=== PATIENT | female | born 1985 | race Caucasian/White ===

== ENCOUNTER 2023-04-19 16:30 | Outpatient (OUT) | payer OTHER, SELFPAY ==
--- NOTE | 2023-04-19 16:40 | US_ITS ---
The [address] [address] Patient Name: CAROLINE EASTON MRN: [id number] date: 1985 Sex: F Assigned Patient Location: US Current Patient Location: Accession/Order Number: [id number] Exam Date: 04/19/2023 16:41 Report Date: 04/20/2023 07:41 At the request of: TRINIDAD DIGGS Procedure: US pelvis transvaginal EXAM: US pelvis transvaginal HISTORY: R10.2 PELVIC PAIN IN FEMALE COMPARISON: None. TECHNIQUE: Pelvic sonography was performed utilizing grayscale and color Doppler technique. FINDINGS: Hysterectomy.. Right ovary measures 2.6 x 2.4 x 2.5 cm. Normal right ovarian parenchyma. Left ovary measures 2.3 x 1.1 x 1.5 cm. Normal left ovarian parenchyma. No significant free fluid within the pelvis. US/US pelvis transvaginal IMPRESSION: 1. Hysterectomy. 2. Normal ovaries Electronically authenticated by: SARA DAVEY Date: 04/20/2023 07:41
== END 2023-04-19 16:31 | disposition home or self-care (01) ==
LOC: LAB 16:34 → US 16:39
PROVIDERS: PCP Obstetrics & Gynecology; Visit Provider Obstetrics & Gynecology
DX: R10.2 Pelvic and perineal pain (principal); Z90.710 Acquired absence of both cervix and uterus
CPT/HCPCS: 76830

== ENCOUNTER 2023-09-15 21:43 | Outpatient (REF) | payer OTHER, SELFPAY ==
--- OUTSIDE RECORDS SUMMARY | 2023-09-16 10:16 | XMS_ITS | CCD ---
Author Name Unknown Address [address] [place] [address] Organization [facility] Care Team Providers Care Inspector [employer] Name Role Phone DEISI PRAJAPATI Unavailable Unavailable NO PRIMARY CARE, MD Unavailable Unavailable KACEY, NYLA T Unavailable Unavailable KACEY, NYLA T Unavailable Unavailable KACEY, NYLA T Unavailable Unavailable NO PRIMARY CARE, MD Unavailable Unavailable KEVIN GRIFFIN Unavailable Unavailable KACEY, NYLA T Unavailable Unavailable NO PRIMARY CARE, MD Unavailable Unavailable EZEQUIEL GREY Unavailable Unavailable DEISI PRAJAPATI Unavailable Unavailable NO PRIMARY CARE, Unavailable Unavailable KACEY, NYLA T Unavailable Unavailable BARBARALILI RODRIGESISTIN J Unavailable Unavailable HORN, ROXIE L Unavailable Unavailable GILBERT, LILA Unavailable Unavailable BARBARA, DEISI J Unavailable Unavailable HORN, ROXIE L Unavailable Unavailable DR JUAN CARLOS DIGGS Attending Unavailable CATERINA, DR ABDI Consulting Unavailable DR JUAN CARLOS DIGGS Admitting Unavailable Gudimella, Za Attending Unavailable Timmis, Becky H Attending Unavailable Timmis, Becky H Admitting Unavailable Timmis, Becky H Referring Unavailable Josue Carrasquillo Attending Unavailable Timmis, Becky H Admitting Unavailable Timmis, Becky H Referring Unavailable Timmis, Becky H Attending Unavailable VICKI LEACH Attending Unavailable Allergies Allergy Classification Reported Allergen(s) Allergy Type Date of Onset Reaction(s) Facility (1 source) Amoxicillin; Translations: [AMOXICILLIN] Drug Allergy [facility] Repository (1 source) Sulfamethoxazole / Trimethoprim; Translations: [SULFAMETHOXAZOLE-TR IMETHOPRIM] Drug Allergy [facility] Repository (2 sources) Sulfamethoxazole / Trimethoprim; Translations: [Bactrim] Drug Allergy [facility] Repository (1 source) Sulfamethoxazole; Translations: [sulfamethoxazole] Drug Allergy [facility] Repository Problems Problem Classification Problem Date Documented Date Episodic/Chronic Immunizations and screening for infectious disease (1 source) Encounter for screening for human papillomavirus (HPV); Translations: [ENC SCREENING HUMAN PAPILLOMAVIRUS] Onset: 09-12-2022 Episodic Other screening for suspected conditions (not mental disorders or infectious disease) (4 sources) Encounter for screening for malignant neoplasm of cervix; Translations: [ENC SCREENING MALIG NEOPLASM CERV] Onset: 09-07-2022 Episodic Results Test Name Value Interpretation Reference Range Facility Family Medicine Office/Clini c Noteon 07-02-2023 Family Medicine Office/Clinic Note Chief Complaint cough HPI Staff complaints of multiple sx Onset:2 weeks Characteristics: dry cough, congestion, sore throat, hurts from mid chest to her throat, OTC tried:tussin, DayQuil, NyQuil, Sudafed Health Maintenance: Pap:12/04/19 Last Labs:01/04/23 History of Present Illness TIFFANY WINTERS is a 38 Years White Female presenting to clinic today with cough, sore throat, congestion x2 weeks no fever +chills, occasional difficulty breathing, occasional chest tightness, sore throat, dry cough went through whole family, , daughter, son Review of Systems PHQ Score Initial Depression Screen Score: 0 Negative except as above Physical Exam Vitals & Measurements HR: 88(Peripheral) BP: 110/62 SpO2: 97% HT: 68 in HT: 172 cm WT: 75.3 kg WT: 165.66 lb BMI: 25.45 Gen: No acute distress, sitting comfortably in chair HEENT: Posterior pharynx clear, moist mucous membranes, TMs and external ear canals normal, no sinus tenderness, no tonsillar enlargement Cardio: RRR, no murmur/rubs/gallops Resp: CTAB, no wheezing/rales/rhonchi Assessment/Plan 1. Bronchitis (J40: Bronchitis, not specified as acute or chronic) azithromycin x5 days prescribed cxr ordered in case symptoms do not improve after antibiotics will trial omeprazole if symptoms persist Ordered: azithromycin, = 1 packet(s), Oral, As Directed, as directed on package labeling, X 5 day(s), # 6 tab(s), Refills(s) 0, Pharmacy: [id number], 172, cm, 07/02/23 7:24:00 EDT, Height/Length Dosing, 75.3, kg, 07/02/23 7:24:00 EDT, Weight Dosing XR Chest 2 Views 2. BMI 25.0-25.9,adult (Z68.25: Body mass index [BMI] 25.0-25.9, adult) The standard range for ages 18 and older is >=18.5 and < 25 kg/m2. Your BMI today was above this range, this falls in the overweight to obese category and there are medical benefits to weight loss. We can offer counselling, referral, and/or medical support in addressing this problem. Your BMI and weight management will be followed at subsequent visits. 3. Nonsmoker (Z78.9: Other specified health status) stable 4. Overweight (E66.3: Overweight) increase whole foods, decrease processed foods exercise at least 2.5 hours weekly Follow-up With When Contact Information Za Dooley MD, FAM, MED Only if needed [address] [place] [phone] Additional Instructions: Problem List/Past Medical History Ongoing Bunion of great toe Frequent episodes of sinusitis Hx of hysterectomy Hypoglycemia Overweight Pelvic congestion syndrome Pelvic congestion syndrome Historical Procedure/Surgical History Intranasal antrostomy (08/27/2022), Hysterectomy (08/30/2020), Diagnostic laparoscopy (04/29/2020), Suciton D&C (11/25/2013), Accessory sinus excision, Bunionectomy. Medications azithromycin 250 mg Tab 5-day Dose Pack (Z-Aditya), 1 packet(s), Oral, As Directed cetirizine 10 mg Tab, 10 mg= 1 tab(s), Oral, Daily, PRN Fish Oil 500 mg oral capsule, 500 mg= 1 cap(s), Oral, Daily Flonase 0.05 mg/inh nasal spray, 2 spray(s), Nasal, Daily Multi Vitamins oral tablet, 1 tab(s), Oral, Daily Premarin, See Instructions Allergies Bactrim (Rash) sulfamethoxazole (unknown) Social History Alcohol - Low Risk, 04/29/2020 1-2 times per month, 01/04/2023 Current, Beer, Wine, 1-2 times per week, 05/13/2020 Employment/School - Low Risk, 04/29/2016 Employed, Operates hazardous equipment: No., 01/28/2015 Exercise - Regular exercise, 04/29/2016 Exercise frequency: 3-4 times/week. Exercise type: Walking., 01/28/2015 Home/Environment - Low Risk, 04/29/2016 Lives with Spouse. Family/Friends available for support: Yes., 01/28/2015 Nutrition/Health - Low Risk, 04/29/2016 Regular, 01/28/2015 Sexual - Low Risk, 04/29/2016 Sexually active: Yes., 01/28/2015 Substance Abuse - Denies Substance Abuse, 01/25/2020 DENIES, Household substance abuse concerns: No., 05/13/2020 Tobacco - Denies Tobacco Use, 01/25/2020 Never (less than 100 in lifetime) Tobacco Use:. Never Smokeless Tobacco Use:. Household tobacco concerns: No., 07/02/2023 Family History COPD: Negative: Father. Diabetes mellitus type 2: Mother and Father. Diverticulitis of colon: Father. Hypertension: Mother and Father. Primary malignant neoplasm of colon: Aunt. Immunizations Vaccine Date Status Comments influenza virus vaccine, inactivated - Not Given Postpone due to refusal SARS-CoV-2 (COVID-19) mRNA BNT-162b2 vax 07/30/2021 Given SARS-CoV-2 (COVID-19) mRNA BNT-162b2 vax 07/30/2021 Given I Did not give this vaccine only entered for charges SARS-CoV-2 mRNA (tozinameran 5y-11y) vac 06/06/2021 Recorded influenza virus vaccine, inactivated 08/07/2019 Recorded diphtheria/pertussis, acel/tetanus adult 10/13/2018 Given Other (see comment) Normal [facility] Comment on above: Result Comment: Elec tronically Signed By: Za Dooley MD\.br\Date and Time Signed: 07/02/23 08:08 EDT Coding Summary.on 01-06-2023 Coding Summary. [id number] Ww+ PGhlYWQ+JZ2CXFOdF53bjAB rxF9qD1PFIDoLTjnpGTEIKO bZQqLhobLrGY8pqQQwKVXi IC8+QS4uLUUhZiqriMUce0S 1wQP7D37buy1tKMsozVS8NJ KoAgKdqvqck9fjxFy4IYxpP mluOyBt PTJifM36ODJ0oR79Zs87tPS nzRQth6ptqVp8WmCqWEZgJO E6zIlhXKbzk6YuRVEeX15mi QHig7F8 RPPhqOxicMRaSzSvuKF0gR9 iLMrhbmadl7vklgmiGlw4cj 26uOEya0Q2xLI6E3SfkjO3M GJvbGQg LoxsgWBPcY3vlujuz4mfpge pRmVsTKGjRYu1IVf1PQPwiF scXqWrHV82GML0KMIyngVtH 2FsLWFs uFlyNhG6f5M5Uq9VE7TZPwm mV6XLWDRMOYsqwSA+PC90cj 02Y0DjMdenRsx6XANiDMT6a CM4hC6h RGYgPCvoc2Q8oKN9O1ZxncS qwz6ke5bpCNGsJKxhP38adI Vzr1U2FKWnvFR8WKZilIzlN iBzaG93 Oyc+TEQacBxph7VsVmveu0d ms5abmTe6TqvgXDJpkrGspW eePTG9b3AaSh6dQHKltKG3u CG0rA6n RpWuBvU7FFmlV411XzPvpME wBhmvO30uV2TztJP+PHRyPj h8IAArfVokKO5pT4NtEEOny mctbGVm hVdjPP0yKUEibgnjOZTieY9 sSCNbA8q4AqJfPiV6MXkiE7 XbNXJffubkRn34yJ3yBaFtL xT9EKhm B0CeawK0PGUaiDTgTOiwQKM 2X26fb0A1KKKdUKMcBLV0mV T1yF6ozQbfcqdohRBmgNlct mVydGlj WMkrYTfxA276JHTreOktSeU vZGluZyBEYXRlOiAgMDQvMT IvMjAyMzwvdGQ+NIIcFCK5r WxlPSAn hCFmGMnoBl8jpDfndDftJT4 uCPUadwiwILTebK4zQXBtvI LkgOyfZU0dDONizekli286Z iAxMHB0 NDAdvCGtI8JmrM0rNdGfKOC rJESjA5JorBKhTIdpP339HM idGcM7NVEcdlZmJ2XkMAKpj WduOiB0 a5P5Rg8Wk1HwrsuxB3YtyMR vJhTfRtbwVGf8Q0WoKpnkkS I+JS35TNYuSP01XTp3JZA4r WxlPSdi LJQgG8MhcJ4eCeXkVRVfDRM kOyc+PHRhYmxlIHdpZHRoPS acDOPpJkRraIvwXN7fVf8iP GVyLWNv fIblwAQqMvBwz4tmMZTqWEr yMN3ejZmeB9RskCZ2FMSdi3 r2Sm00J63vH0ZetRV+PGNvb NR4pZI7 eB7xArXtWjW2FErcY996BsF glJEdByfpa3ydz5hbzMz9Xe G3JQNltmFidOukKFM0j4YwR y47X12f IHdpZHRoPSIxNSUiIHZhbGl ned7snU8eCg6+OCQssVU2uM A7mP6iHoAjNaO8HKewV013L nRvcCIv Cqrfy2thq7fspUj9SjHjTME ccaTrnKjhHWM5e9ZwAm65K1 AnwMwyf0MgYsu0xq58pDVvv 2L3gOM0 R7KdEYCfegvyzMTtkGpiSY7 yWYNsmbjsBARrxL8vAHOfD0 p4YlZzFxL9JXwuX4QgzpV4E GJvbGQg SHLplRMPaU5lvhpkj1vkncn uGzSdNUFcMJt0BRv5XVIfkY xpTvYpWPZ8DyS5PGE9rMFyz W9wfHhe nutcgY6gEgl+LUL3aHMqsHZ IAO4nRnlmtTK+SDZsLAP4uL eqXIpjKXBrrB1bMONsV3x1Z iAwLjA1 PPfqW9JleoV7NCEsmIKmLET oqGJMgH4tppbbu6pczhqxWp KdEKOyPLv7RQt4UFAixAdeW iBsZWZ0 UpG2OTP9bOVaoW8ezEvybbb ktT7oQhu+YtufqPlnSCW6YY f3A2WlSns5XHGlbBldKE9cr GFkZGlu Jh6xcClryEcvEA5qAOYvgcl ht967MwHbq6jlYMPdhPKoTH nyUOT4R06mc1S5PJJbAJInR HZ9zZP3 dG7odKthojatvECaqPmvgnB bnLfnCVgdMVikR922TWHzdS ceGmVwFBe1K5GrWwa1CPXev QjpHD4e hOTbLCpxLb0saBiseZnwOE0 eQWOumulgv889NtSud3hfJQ DcaTOpUOupHST8E65tw9Q5O CMwMDAw SSR7eOC8wA2avElzecotaBK mdDsgdmVydGljYWwtYWxpZ2 10DGPdyIktOgLzzHc5Y5BmN hz9ZZAn hPbaZR8jzGErKZekQy6kgQi kiBtrPX5bUCVwvarkj494Ey Fdz5kuSIKpnCIiBBjlHCP6C 62ws1S0 SWMjVPBrCWR1eAR2oD1bhMn nbjogbGVmdDsgdmVydGljYW umRAzzZ253MHOlvNszRuItz GllbnQg NLryXKx4H7IjMduqoTK+PC9 2FXKvSL35eLOeySVfw1ewdQ t5ZlCwXFHnSWO1sOfgOZule 3JkZXIt J14krZKmc5C6QLIjuUugrMU lKoWzsYF9nO3vUWvvravju8 xwapmwEibkq6ixsr31jC31Y 29sIHdp ZHRoPSIzMCUiIHZhbGlnbj0 yeJ1iLt7+MWMfoGV2yGR1sY 4bMWKeLeL8PNzpF492RxVbn CIvPjxj f8iiy0oliHf4LeN5TKKayfF kuVtuGYG3f6AyPg78B64fKI dpZHRoPSIyMCUiIHZhbGlnb k6iuH5q Ii8+OQZdxJC0yXR8mB8nVwX dRnV9HImnI307BmLjxXZoEk fqJ90tZ2AynLQ+OLZhGvs8L CBzdHls KG2tyJUyJVfbZu5wXMY5GgK aYlLgDJbdO3TiVJTccjmnra pzzGM7JZNkUQHtuQ95Hl5rd DogMTBw wPZRxH4smzazg1yrmqmnWpR aCNVdOYd9PQv1THIoiDznWs SmHYW7WaL3KLJ2fGEylE2yt Glnbjog pT3aB2TtOLFxlpbiLc57hD5 tMhMcAwB4XSbkKff+Uk9TUE KTADixVgSUAQTSFXDPTF64P V47kUTl s9F3dXP4M8MiNOHruyrhhqn mqLC3LUQvTGCykZ80xHTrKP guHc4jx1G1m221IZWiWSKov N83Kj9s kZkhHZUxgOYMeV1wtoitl4k puxklYaWfGXFmOWw1UOt4OG TpaZuqKlHrRBJ2QnG1XMJ6z QNtbL8l fHrrrdyvoV8wHgy+MDgvMjc bXPo6TraxyJJ+IPNgMMI8qO haDTxjNMYluM9hQZZeL0k3R iAwLjA1 SLgfM9SpZHSzwhthLf21jC8 kPrQqWmO1MHsnT1ShwzO8OE CclFJzRObtTUM3J50td5K7C CMwMDAw MMC1iOR3iU7hqSonxuqmaHX mdDsgdmVydGljYWwtYWxpZ2 07IDAqlCqiPbM0JMeoJXEdE N21AY50 hFJqi5G2qQD2A2PtBYYastm tnwbwrCA1OIGfETEdoK00wP SgDAxnPd8xz1R2q903ALKoB DUwaW47 Fn6fsJxlPYIybTVNkK5enzs pd2tcrvqhAjYvHQFrNIr4VW u2LHUyyTwoWfEgGTV5CnH4A BF5pOTj mU7fsOxfomjqsT5iNbh+RmV oXMeuBS53MZ69hEBft3J5dX P7U2TtCDHgdvjlhckatYR2Y DAuMDUw nC95cZErIUudQk6ip1Z5t96 5PHIoTUWhuD91Ik1swVuvGE DdzCIQcG7yytusw5irlnouE zAwMDAw KFk6RUw4DDXldMbxEkItRZB 4WyV6SIO7wKWgxS1pqHglrv akgK5cXta+LD8qlswacdZ1H Z11FH59 W6LtDwcejVMboQG+PHRhYmx lIHdpZHRoPScxMDAlJyBzdH skBU1kKe5hLJSlEWHltMvlh HNlOiBj j8neUMQwOJmbJL1apNhsX3N qmYP7TKVzd3y5Lt08H96fQ4 JvdXA+RAAwsPS1gLF1sA8nK zAlIiB2 PWyoI794WnPmiZEgIiydx8l fi2sfwAy7XaDlSBUbpyJkbJ vfPPJ6y4YmNp09P66bLRrmJ HRoPSIy UQDvVUWioYytfu7jyD1hDm3 +XMWkeGA5rHG1tB2yGgZpIz S5FHvgX143NyZmmEAzCybnS 00xD0Dw dXA+TFOzEja7HEJevDgjNO2 rqXXrWKexOj8gRNM6QpDkEb RkXNubN8EaIFFedlglkmmvl DE3ZQCp DSIntC79Mw2zmVeaFs5jEAG iMSR5SHDzzYJgR7WbdX0hLy RlJYJnIEYnQ6CpbXPaZTggS 246IGxl VeA0IECqwdIgK9XtMXQiuEg gZeL7z0B4Qv8XzMwbxBRrSK 0hAtCtOLc9O8XsUvs9VJSxn XrgJE0g hPNeQPnwXm6bkXivwOwkIH6 bOLBugxsdi152EzYej9jjLC TwqURcMYosVPF1V56cu0S1G CMwMDAw WMQ7pQE1iX4pfDkfcxirvWQ mdDsgdmVydGljYWwtYWxpZ2 03DDSxzQbrDaPNRlm0Y6MsS rf5KAXf wZbcJI7mfSYuDJmdYt0irEt svVkySI2eWIUcgollb202Eb Jue4vlKLVgnLUgHLwxOIA8L 65if9O2 LKPqDVSyGZK6nPU0gR7ebTr nbjogbGVmdDsgdmVydGljYW zmXYepT407IDUmkZvbYx2CL el7X5Mc Azn8BKCtwXgxAJ5loVCgRDj kMy5kgSpabAoeUF2tUUKblj otk509IoRtc3ytRELvnQXbU GltZXM7 N09fm7N0GBJpCMHmHIC8gST 2mF3knChxqlyeeFIigHotlc UknLzbPEsdDRhuA093PRVys DsnPlBh eWVyOjwvdGQ+RG99xs47N6N eWolrUxe8BYBcUYE4xZJ3fO 6bWPFlJLjrt1O9iYJ9A0Wcq nOawp7f f9tkUDZk (more content not included)... Normal [facility] Auto Diffon 01-04-2023 Basophils/100 WBC (Bld) 0.3 % Normal 0.0-2.0 [facility] Comment on above: Order Comment: Order Added by Discern Expert. Performed By: #### 2 349954, [id number], 7743496, 7204257, 2242333 ####[facility] [address] [place] [address] Basophils/Leukocyte s Auto (Bld) [Pure # fraction] 0.0 E9/L Normal 0.0-0.2 [facility] Comment on above: Order Comment: Order Added by Discern Expert. Performed By: #### 2 761215, 64555966, 2649263, 4722539, 3070136 ####[address] [place] [address] Eosinophils/100 WBC (Bld) 0.6 % Normal 0.0-8.0 [facility] Comment on above: Order Comment: Order Added by Discern Expert. Performed By: #### 2 640764, 74364992, 5822129, 4051133, 2391553 ####[address] [place] [address] Eosinophils/Leukocy gary Auto (Bld) [Pure # fraction] 0.0 E9/L Normal 0.0-0.5 [facility] Comment on above: Order Comment: Order Added by Discern Expert. Performed By: #### 2 788115, 75854505, 4462575, 4271522, 3621149 ####[address] [place] [address] Lymphocytes/100 WBC (Bld) 25.2 % Normal 14.0-50.0 [facility] Comment on above: Order Comment: Order Added by Discern Expert. Performed By: #### 2 946967, 28739678, 1604429, 5438266, 7007570 ####[address] [address] Lymphocytes/Leukocy gary Auto (Bld) [Pure # fraction] 1.5 E9/L Normal 1.0-4.0 [facility] Comment on above: Order Comment: Order Added by Discern Expert. Performed By: #### 2 340770, 44661557, 0478216, 0972428, 5633380 ####[facility] [address] [place] [address] Monocytes/100 WBC (Bld) 6.0 % Normal 4.0-14.0 [facility] Comment on above: Order Comment: Order Added by Discern Expert. Performed By: #### 2 116609, 13654720, 5542325, 5785706, 6421924 ####[address] [place] [address] Monocytes/Leukocyte s Auto (Bld) [Pure # fraction] 0.4 E9/L Normal 0.2-1.0 [facility] Comment on above: Order Comment: Order Added by Discern Expert. Performed By: #### 2 712651, 00376679, 5637328, 1912779, 3799444 ####[address] [place] [address] Neutrophils/100 WBC (Bld) 67.9 % Normal 36.0-75.0 [facility] Comment on above: Order Comment: Order Added by Discern Expert. Performed By: #### 2 243075, 56955398, 7205177, 9638028, 9909159 ####[facility] [address] [place] [address] Neutrophils/Leukocy gary Auto (Bld) [Pure # fraction] 4.1 E9/L Normal 2.0-7.5 [facility] Comment on above: Order Comment: Order Added by Discern Expert. Performed By: #### 2 360298, 63382332, 3721160, 9983161, 8876750 ####[facility] [address] [place] [address] BMPon 01-04-2023 Creatinine [Mass/Vol] 0.6 mg/dL Normal 0.5-1.3 [facility] Comment on above: Performed By: #### 2 650970, 57742064, 5697067, 9452671, 0531980 ####[facility] [address] [place] [address] Urea nitrogen [Mass/Vol] 11 mg/dL Normal 5-21 [facility] Comment on above: Performed By: #### 2 292421, 52324454, 4085492, 0022979, 3910629 ####[facility] [address] [place] [address] Urea nitrogen/Creatinine [Mass ratio] 18 No Units Normal 10-20 [facility] Comment on above: Performed By: #### 2 621235, 24710036, 5993982, 5648789, 2723229 ####[facility] [address] [place] [address] Anion gap [Moles/Vol] 9 mmol/L Normal 6-16 [facility] Comment on above: Performed By: #### 2 309331, 24892492, 3511429, 8326937, 4867474 ####[facility] [address] [place] [address] Calcium [Mass/Vol] 9.1 mg/dL Normal 8.9-11.1 [facility] Comment on above: Performed By: #### 2 291573, 96528149, 5831182, 2200237, 6307838 ####[facility] [address] [place] [address] Chloride [Moles/Vol] 100 mmol/L Low 101-111 [facility] Comment on above: Performed By: #### 2 365875, 33094110, 9765995, 5293275, 3456473 ####[facility] [address] [place] [address] CO2 [Moles/Vol] 28 mmol/L Normal 21-31 [facility] Comment on above: Performed By: #### 2 842380, 73015663, 7858924, 3178862, 4008933 ####[facility] [address] [place] [address] Glucose [Mass/Vol] 89 mg/dL Normal 55-199 [facility] Comment on above: Result Comment: If t his glucose result represents a fasting glucose, interpretation should refer to the following reference range: 55-99 mg/dL Performed By: #### 2 044215, 69021868, 1997456, 3588913, 1410371 ####[facility] [address] [place] [address] Potassium [Moles/Vol] 4.1 mmol/L Normal 3.5-5.3 [facility] Comment on above: Performed By: #### 2 876932, 38566367, 9214905, 2550257, 6880366 ####[facility] [address] [place] [address] Sodium [Moles/Vol] 133 mmol/L Low 135-145 [facility] Comment on above: Performed By: #### 2 346191, 03311043, 1133614, 4465516, 3514668 ####[facility] [address] [place] [address] CBC w/ Auto Diffon 3 Erythrocyte distribution width (RBC) [Ratio] 13.1 % Normal 10.9-14.2 [facility] Comment on above: Performed By: #### 2 169310, 89608778, 5205684, 8963047, 3625730 ####[address] [place] [address] Hematocrit (Bld) [Volume fraction] 42.6 % Normal 34.0-46.0 [facility] Comment on above: Performed By: #### 2 489712, 18640123, 6470749, 7086495, 2522277 ####[facility] [address] [place] [address] Hemoglobin (Bld) [Mass/Vol] 13.8 g/dL Normal 12.0-16.0 [facility] Comment on above: Performed By: #### 2 561757, 65697663, 1213915, 1567933, 1441786 ####[address] [place] [address] MCH (RBC) [Entitic mass] 29.0 pg Normal 27.0-34.0 [facility] Comment on above: Performed By: #### 2 495373, 91275560, 3393745, 8258716, 1777356 ####[address] [place] [address] MCHC (RBC) [Mass/Vol] 32.5 g/dL Normal 31.4-36.0 [facility] Comment on above: Performed By: #### 2 811639, 03019066, 0879617, 9279831, 3790695 ####[address] [address] MCV (RBC) [Entitic vol] 89.3 fL Normal 80.0-100.0 [facility] Comment on above: Performed By: #### 2 804682, 77139803, 1310257, 1516151, 4278598 ####[address] [address] Platelet mean volume (Bld) [Entitic vol] 8.2 fL Normal 6.4-10.8 [facility] Comment on above: Performed By: #### 2 697585, 06274367, 9471205, 3740380, 3546270 ####[address] [address] Platelets (Bld) [#/Vol] 192.0 E9/L Normal 150.0-500.0 [facility] Comment on above: Performed By: #### 2 763723, 64169249, 3802000, 9010179, 6115892 ####[address] [address] RBC (Bld) [#/Vol] 4.8 E12/L Normal 4.3-5.9 [facility] Comment on above: Performed By: #### 2 187727, 88542336, 7948090, 4470185, 2075302 ####[facility] [address] [place] [address] WBC corrected for nucl RBC Auto (Bld) [#/Vol] 6.1 E9/L Normal 4.0-11.0 [facility] Comment on above: Performed By: #### 2 [id number], [id number], [id number], [id number], [id number] ####[facility] [id number] [place] [address] CT Abdomen/Pelvis w/ Contras ton 01-04-2023 CT Abdomen/Pelvis w/ Contrast Exam Date/Time: 01/04/2023 11:31 EDT Reason for Exam: Abdominal pain, acute, nonlocalized;Other (please specify) Report IMPRESSION: FREE INTRAPERITONEAL FLUID IN THE PELVIS. THE ETIOLOGY OF THIS IS UNDETERMINED. FREE FLUID COULD BE RELATED TO AN ACTIVE INFLAMMATORY PROCESS, ALTHOUGH NO FOCAL INFLAMMATORY COMPLEX NOR ABSCESS IS EVIDENT. RUPTURED OVARIAN CYST COULD ALSO ACCOUNT FOR THE FREE FLUID. THE PATIENT HAS HAD A PRIOR HYSTERECTOMY. CLINICAL CORRELATION WITH SURGICAL HISTORY WOULD BE HELPFUL.. CLINICAL HISTORY: Abdominal pain, acute, nonlocalized. COMPARISON: 05/05/2019. COMMENT: Images were obtained following the administration of Intravenous contrast. The liver, spleen, pancreas, gallbladder, adrenal glands, and kidneys are normal in appearance. The renal collecting systems are not dilated. No retroperitoneal lymphadenopathy is evident. The abdominal aorta is normal in diameter. No aneurysm is noted. Evaluation of bowel is limited. The small bowel loops are not dilated, and there is no evidence of small bowel obstruction. The appendix is unremarkable in appearance. Fecal material in the colon limits evaluation. There is no abnormal dilatation of the colon. There is no evidence of diverticulitis. No abdominal inflammatory complex nor free air is noted. There is a small umbilical hernia, that contains fat. The patient has had a prior hysterectomy. There is free fluid in the pelvis, of undetermined etiology. The urinary bladder is unremarkable. No pelvic lymphadenopathy nor pelvic mass is evident. No significant bony abnormality is evident. All CT scans at this facility use dose modulation, iterative reconstruction, and/or weight based dosing when appropriate to reduce radiation dose to as low as reasonably achievable. Ordering Provider: Josue Carrasquillo FINAL REPORT Dictated: 01/04/2023 11:51 am Zach Gaston M.D. Signed (Electronic Signature): 01/04/2023 11:51 am Signed by: Zach Gaston M.D. Transcribed by: ABHIJIT Technologist: LALO Technical Comments GFR (mL/min/1/73m2) na Contrast: Isovue 300 Contrast amount in ml's: 100 Normal [facility] Consent for Treatmenton 12-26 Consent for Treatment [id number] D:127 Normal [facility] Discharge Instructionson Discharge Instructions [id number] CD:127 Normal [facility] ED Clinical Summaryon 2022 ED Clinical Summary (Inserted Image. Therese ble to display) [place] [id number] ED Clinical Summary Person Information Name: TIFFANY WINTERS Cheryl/[facility] Age: 37 Years : 1985 Sex: Female Language: Danish PCP: Za Dooley MD Marital Status: Phone: [phone] Visit Id: Visit Reason: Abdominal pain; LOWER ABD PAIN, CRAMPING Speciality: Acuity: 3 Enc Type: Emergency Med Service: Emergency Arrival: 01/04/2023 09:20:11 Discharge: 01/04/2023 14:49:38 LOS: 000 05:29 Checkin: 01/04/2023 09:20:11 Checkout: 01/04/2023 14:49:38 Dispo Type: Home (Routine DC) EVENTS: Event Name Event Status Request Date/Time Start Date/Time Complete Date/Time Arrive Complete 01/04/2023 09:20:11 01/04/2023 09:20:11 01/04/2023 09:20:11 Document Home Meds Request 01/04/2023 09:20:11 Triage Complete 01/04/2023 09:20:11 01/04/2023 09:33:33 01/04/2023 09:33:33 Bed Assign Complete 01/04/2023 09:24:31 01/04/2023 09:24:31 01/04/2023 09:24:31 Dr Exam Complete 01/04/2023 09:24:31 01/04/2023 09:26:33 01/04/2023 09:26:33 RN Exam Complete 01/04/2023 09:24:31 01/04/2023 09:53:46 01/04/2023 09:53:46 Registration Complete 01/04/2023 09:26:33 01/04/2023 09:37:29 01/04/2023 09:37:29 Reg Complete Request 01/04/2023 09:37:29 Reg Bed Request Complete 01/04/2023 09:37:29 01/04/2023 09:37:29 01/04/2023 09:37:29 Meds Admin Complete 01/04/2023 10:13:55 01/04/2023 10:21:44 Pending Labs Complete 01/04/2023 10:13:55 01/04/2023 10:42:43 Lab Complete 01/04/2023 10:13:55 01/04/2023 10:42:43 Urine Collect Complete 01/04/2023 10:13:55 01/04/2023 10:42:43 Patient Care Request 01/04/2023 10:13:55 CT Complete 01/04/2023 10:13:55 01/04/2023 11:08:33 01/04/2023 11:31:04 Pending Labs Complete 01/04/2023 10:20:08 01/04/2023 10:20:08 01/04/2023 10:36:09 Lab Complete 01/04/2023 10:20:08 01/04/2023 10:20:08 01/04/2023 10:36:09 Pending Labs Complete 01/04/2023 10:31:32 01/04/2023 10:31:32 01/04/2023 10:31:39 Lab Complete 01/04/2023 10:31:32 01/04/2023 10:31:32 01/04/2023 10:31:39 US Cancel 01/04/2023 12:03:53 01/04/2023 13:33:34 01/04/2023 13:58:21 US Complete 01/04/2023 13:58:20 01/04/2023 13:58:21 Discharge Complete 01/04/2023 14:26:31 01/04/2023 14:49:46 01/04/2023 14:49:46 Transfer Complete 01/04/2023 14:49:46 01/04/2023 14:49:46 01/04/2023 14:49:46 ADDRESS: [address] [facility] [place] [address] PHYS DOC NOTES: MEDICAL INFORMATION: Prescriptions Given: New Medications [facility], [address] [place], [place] [id number], [phone] dicyclomine (Bentyl 10 mg Cap) 1 Capsules By Mouth 4 times a day as needed Other (see comment). For abdominal cramping. Refills: 0. Medications to Continue with No Changes Other Medications cetirizine (cetirizine 10 mg Tab) 1 Tablets By Mouth every day as needed Allergy symptoms. fluticasone nasal (Flonase 0.05 mg/inh nasal spray) 2 Sprays Nasal Inhalation every day. multivitamin (Multi Vitamins oral tablet) 1 Tablets By Mouth every day. omega-3 polyunsaturated fatty acids (Fish Oil 500 mg oral capsule) 1 Capsules By Mouth every day. otc. PATIENT EDUCATION INFORMATION: Instructions: Pelvic Pain, Female Follow up: With: Address: When: Juan Carlos [facility], [address] [place] [address] [place], [place] [id number] [facility] (1) In 3 days 01/07/2023 Comments: Follow-up to discuss your ED visit and pelvic pain. Take ibuprofen. Use Bentyl as needed. Return to the ED if symptoms worsen. With: Address: When: Za Dooley In 3 days 01/07/2023 Comments: Call the office of your primary care doctor to arrange for follow-up within the above-stated timeframe. Follow-up with your primary care doctor about this ED visit. You should review your labs, imaging, and diagnoses from this ED visit with your primary care physician. There are occasionally non-emergent findings that require additional follow-up after your ED visit. If you were prescribed medications you should discuss possible side-effects and drug interactions with your pharmacist. Call 911 or go to the nearest Emergency Department if you develop any new or worsening symptoms. Seek immediate medical attention if you develop: worsening abdominal pain, new or worsening nausea, new or worsening vomiting, new or worsening diarrhea, chest pain, shortness of breath, pain with urination, problems urinating, fever, chills, weakness, or any new or worsening symptoms. DIAGNOSIS: Abdominal pain, lower Normal [facility] ED Note-Physicianon 01-05-20 ED Note-Physician Basic Information Time Seen: Foreign Josue M. 01/04/2023 09:26 Chief Complaint c/of lower abd pain, blaoting, cramping that started yesterday, denies and N/V/D or fevers History of Present Illness 37-year-old female to the emergency department chief complaint of cramping lower abdominal pain, bloating that started yesterday evening. She denies any nausea, vomiting, diarrhea. She reports she has had normal bowel movements. She reports a history of hysterectomy. She still has tubes and ovaries. Pain is bilateral. It is intermittent in nature. Is worse when she tries to have a bowel movement or urinating. She denies any fever, sweats, chills. She was otherwise at her baseline health. She denies any blood in the stool or dark tarry stools. Review of Systems A 10 point review of systems is negative except as noted above. Medical and Surgical History: Reviewed and noted Social history: Lives at home Tobacco: Denies Physical Exam Vitals & Measurements T: 36.9 ?C(Oral) HR: 76(Peripheral) RR: 18 BP: 120/72 SpO2: 100% HT: 172 cm WT: 73 kg BMI: 24.68 VITALS: I have reviewed the triage vital signs. GENERAL: Well developed, well appearing adult in no acute distress. NEURO: Alert and oriented. Moves all extremities. Face is symmetric and expressive. EYES: PERRL. No scleral icterus or conjunctival injection. No discharge. HENT: Normocephalic, atraumatic. Hearing is grossly intact. Nares grossly patent and without discharge. Mucous membranes moist. NECK: No JVD. Patient moves neck without restriction. CARDIO: Rhythm regular. Normal rate. No murmur, rub, or gallop. Pulses equal bilaterally in the upper and lower extremity. No lower extremity edema. PULM: Lungs clear to auscultation in all rogel. No wheezes, rales, or rhonchi. No conversational dyspnea. No splinting, stridor, or accessory muscle use. GI/: Abdomen is soft and non-tender. Normoactive bowel sounds. EXTREMITIES: Symmetric muscle bulk. No joint swelling. No clubbing, cyanosis, or deformity. SKIN: Warm and dry. Normal turgor. No rash or lesions appreciated. PSYCH: Mood, affect, and interaction is appropriate to the setting. Medical Decision Making Number and Complexity of Problems Differential Diagnosis: Diverticulitis, UTI, constipation, appendicitis MDM Data External documents reviewed: Not applicable My EKG interpretation: Not applicable My CT interpretation: As below My X-ray interpretation: Not applicable My Ultrasound interpretation: Not applicable Decision rules/scores evaluated: Not applicable Discussed with: Not applicable Treatment and Disposition ED Course: 37-year-old female to the emergency department chief complaint of cramping lower abdominal pain. It does not localize. Vitals are stable, the patient is afebrile. Her abdominal examination is benign. She is currently in no discomfort. She declines any pain or nausea medication. We will proceed with basic labs, urinalysis, CT scan of the abdomen pelvis with contrast to evaluate for the above differential. Patient agrees with this plan. CBC, chemistry, urinalysis are unremarkable. CT scan with free fluid, no other acute process. Pelvic ultrasound was ordered to better visualize if there is a cyst in the integrity of the ovaries. Tech reports imaging was normal; no evidence of cyst, torsion, or other acute process. Patient reevaluated the room. She remains well-appearing. She has no pain at this time. Her abdomen remains benign. Vitals remained stable. Discussed findings with the patient. Discussed diagnostic uncertainty. We will treat at home with ibuprofen and Bentyl. She will watch herself closely, if symptoms worsen or do not improve over the next 48 hours she will return. Patient agrees with this plan. Follow-up with PCP in Shared decision making: As above Code status: Not addressed during this visit Assessment/Plan Abdominal pain, lower (R10.30: Lower abdominal pain, unspecified) Orders: Sodium Chloride 0.9% intravenous solution, 1,000 mL, Soln-IV, IV, Once, Stop date 01/04/23 10:13:00 EDT, STAT, Start date 01/04/23 10:13:00 EDT, Infuse over 61, minute(s) Basic Metabolic Panel CBC w/ Auto Diff CT Abdomen/Pelvis w/ Contrast ED Cardiac Monitoring Hepatic Function Panel Saline Lock Insert UA With Cult Reflex Disposition Plan Patient Discharge Condition stable Discharge Disposition home Discharge Prescription List Prescriptions Bentyl 10 mg Cap, 10 mg= 1 cap(s), Oral, QID, PRN Follow-up With When Contact Information Juan Carlos DIGGS In 3 days 01/07/[address] [place] [address] Business (1) Additional Instructions: Follow-up to discuss your ED visit and pelvic pain. Take ibuprofen. Use Bentyl as needed. Return to the ED if symptoms worsen. Za Gudimella In 3 days 01/07/2023 EDT Additional Instructions: Call the office of your primary care doctor to arrange for follow-up within the above-st (more content not included)... Normal [facility] Comment on above: Result Comment: Elec tronically Signed By: Josue Carrasquillo DO\.br\Date and Time Signed: 01/04/23 14:48 EDT ED Patient Education Noteon 01-04-2023 ED Patient Education Note Obstetrics and Gynecology Pelvic Pain, Female Pelvic pain is pain in your lower abdomen, below your belly button and between your hips. The pain may start suddenly (be acute), keep coming back (be recurring), or last a long time (become chronic). Pelvic pain that lasts longer than 6 months is considered chronic. Pelvic pain may affect your: ? Reproductive organs. ? Urinary system. ? Digestive tract. ? Musculoskeletal system. There are many potential causes of pelvic pain. Sometimes, the pain can be a result of digestive or urinary conditions, strained muscles or ligaments, or reproductive conditions. Sometimes the cause of pelvic pain is not known. Follow these instructions at home: ? Take jisf-tpm-mgwxhyv and prescription medicines only as told by your health care provider. ? Rest as told by your health care provider. ? Do not have sex if it hurts. ? Keep a journal of your pelvic pain. Write down: ? When the pain started. ? Where the pain is located. ? What seems to make the pain better or worse, such as food or your period (menstrual cycle). ? Any symptoms you have along with the pain. ? Keep all follow-up visits as told by your health care provider. This is important. Contact a health care provider if: ? Medicine does not help your pain. ? Your pain comes back. ? You have new symptoms. ? You have abnormal vaginal discharge or bleeding, including bleeding after menopause. ? You have a fever or chills. ? You are constipated. ? You have blood in your urine or stool. ? You have foul-smelling urine. ? You feel weak or light-headed. Get help right away if: ? You have sudden severe pain. ? Your pain gets steadily worse. ? You have severe pain along with fever, nausea, vomiting, or excessive sweating. ? You lose consciousness. Summary ? Pelvic pain is pain in your lower abdomen, below your belly button and between your hips. ? There are many potential causes of pelvic pain. ? Keep a journal of your pelvic pain. This information is not intended to replace advice given to you by your health care provider. Make sure you discuss any questions you have with your health care provider. Document Released: 08/10/2005 Document Revised: 03/01/2019 Document Reviewed: 03/01/2019 [employer] Patient Education ? 2019 [employer] Normal [facility] ED Patient Summaryon 023 ED Patient Summary (Inserted Image. Therese ble to display) [place] [address] Patient Discharge Instructions Person Information Name: TIFFANY WINTERS Age: 37 Years Arrival Date: 01/04/2023 09:20:11 Discharge Diagnosis: Abdominal pain, lower Primary Care Physician: Za Dooley MD Provider Information Primary Provider: Josue Carrasquillo DO Advanced Needlemaker:None The exam and treatment you received in the Emergency Department were for an urgent problem and are not intended as complete care. It is important that you follow up with a doctor, nurse practitioner, or physician?s field administrative assistant for ongoing care. If your symptoms become worse or you do not improve as expected and you are unable to reach your usual health care provider, you should return to the Emergency Department. We are available 24 hours a day. TIFFANY WINTERS has been given the following list of patient education materials, prescriptions and follow-up instructions: Follow-up Instructions: With: Address: When: Juan Carlos DIGGS [facility], [address] [place] [address] [place] [address] Business (1) In 3 days 01/07/2023 Comments: Follow-up to discuss your ED visit and pelvic pain. Take ibuprofen. Use Bentyl as needed. Return to the ED if symptoms worsen. With: Address: When: Za Gudimella In 3 days 01/07/2023 Comments: Call the office of your primary care doctor to arrange for follow-up within the above-stated timeframe. Follow-up with your primary care doctor about this ED visit. You should review your labs, imaging, and diagnoses from this ED visit with your primary care physician. There are occasionally non-emergent findings that require additional follow-up after your ED visit. If you were prescribed medications you should discuss possible side-effects and drug interactions with your pharmacist. Call 911 or go to the nearest Emergency Department if you develop any new or worsening symptoms. Seek immediate medical attention if you develop: worsening abdominal pain, new or worsening nausea, new or worsening vomiting, new or worsening diarrhea, chest pain, shortness of breath, pain with urination, problems urinating, fever, chills, weakness, or any new or worsening symptoms. In the event that this physician does not participate in your insurance network, please consult with your insurance company to find a nearby participating provider. Patient Education Materials: Pelvic Pain, Female A MESSAGE TO ALL PATIENTS REGARDING OPIOIDS PRESCRIPTION OPIOIDS: WHAT YOU NEED TO KNOW Prescription opioids can be used to help relieve nuaatjab-ji-udbsgj pain and are often prescribed following a surgery or injury, or for certain health conditions. These medications can be an important part of the treatment but also come with serious risks. It is important to work with your healthcare provider to make sure you are getting the safest, most effective care. WHAT ARE THE RISKS AND SIDE EFFECTS OF OPIOID USE? Prescription opioids carry serious risks of addiction and overdose, especially with prolonged use. An opioid overdose, often marked by slowed breathing, can cause sudden . The use of prescription opioids can have a number of side effects as well, even when taken as directed: ? Tolerance?meaning you might need to take more of the medication for the same pain relief ? Physical dependence?meaning you have symptoms of withdrawal when a medication is stopped ? Increased sensitivity to pain ? Constipation ? Nausea, vomiting, and dry mouth ? Sleepiness and dizziness ? Confusion ? Depression ? Low levels of testosterone that can result in lower sex drive, energy, and strength ? Itching and sweating RISKS ARE GREATER WITH: ? History of drug misuse, substance use disorder, or overdose ? Mental health conditions (such as depression or anxiety) ? Sleep apnea ? Older age (65 years and older) ? Avoid alcohol while taking prescription opioids. Also, unless specifically advised by your health care provider, medications to avoid include: ? Benzodiazepines (such as Xanax or Valium) ? Muscle relaxants (such as Soma or Flexeril) ? Hypnotics (such as Ambien or Lunesta) ? Other prescription opioids KNOW YOUR OPTIONS Talk to your health care provider about ways to manage your pain that don?t involve prescription opioids. Some of these options may actually work better and have fewer risks and side effects. Options may include: ? Pain relievers such as acetaminophen, ibuprofen, and naproxen ? Some medication that are also used for depression or seizures ? Physical therapy and exercise ? Cognitive behavioral therapy, a psychological, goal-directed approach, in which patients learn how to modify physical, behavioral, and emotional triggers of pain and stress. IF YOU ARE PRESCRIBED OPIOIDS FOR PAIN: ? Never ta (more content not included)... Normal [facility] Hep Func Panelon 01-04-2023 Bilirubin.indirect [Mass or moles/Vol] UTC Abnormal 0.1-0.9 [facility] Comment on above: Result Comment: Resu lt verified by Discern Rule. Performed result UTC (Unable to Calculate) was sent as an Alpha code due the inability to calculate a valid numeric value. Performed By: #### 2 [id number], [id number], [id number], [id number], [id number] ####[facility] [address] [place] [address] Albumin [Mass/Vol] 4.4 g/dL Normal 3.3-5.0 [facility] Comment on above: Performed By: #### 2 739373, [id number], 2280287, 1174217, 9216141 ####[facility] [address] [place] [address] Albumin/Globulin (S) [Mass conc ratio] 1.3 Normal 1.1-2.2 [facility] Comment on above: Performed By: #### 2 379127, [id number], 2841400, 7919700, 1310192 ####[place] [address] [place] [address] ALP [Catalytic activity/Vol] 46 Int._Unit/L Normal 21-98 [facility] Comment on above: Performed By: #### 2 272597, [id number], 8578565, 6689127, 4993071 ####[address] [address] ALT No additional P-5'-P [Catalytic activity/Vol] 12 Int._Unit/L Normal 6-46 [facility] Comment on above: Performed By: #### 2 193831, 96921282, 0717700, 4692379, 8098386 ####[address] [place] [address] AST [Catalytic activity/Vol] 19 Int._Unit/L Normal 5-43 [facility] Comment on above: Performed By: #### 2 402925, [id number], 6549017, 4816271, 4613816 ####[address] [place] [address] Bilirubin [Mass/Vol] 0.5 mg/dL Normal 0.0-1.1 [facility] Comment on above: Performed By: #### 2 083418, [id number], 7916530, 8954029, 0403112 ####[address] [place] [address] Bilirubin.direct [Mass/Vol] mg/dL Normal 0.1-0.4 [facility] Comment on above: Performed By: #### 2 831369, 18971430, 5422378, 1954941, 5408759 ####[facility] [address] [place] [address] Globulin (S) [Mass/Vol] 3.3 g/dL Normal 1.4-4.0 [facility] Comment on above: Performed By: #### 2 058397, 10956052, 1260407, 3244583, 3978149 ####[facility] [address] [place] [address] Protein [Mass/Vol] 7.7 g/dL Normal 6.0-7.8 [facility] Comment on above: Performed By: #### 2 193437, 39129559, 3515986, 4172341, 7753520 ####[address] [address] UA With Cult Reflexon 2022 Bacteria LM Ql (Urine sed) TRACE Normal Trace [facility] Comment on above: Performed By: #### 1 [id number] ####[address] [address] Bilirubin Ql (U) Negative Normal Negative [facility] Comment on above: Performed By: #### 1 [id number] ####[address] [address] Clarity (U) CLEAR Normal Clear [facility] Comment on above: Performed By: #### 1 [id number] ####[address] [address] Color (U) YELLOW Normal Yellow [facility] Comment on above: Performed By: #### 1 1096686 ####[address] [address] Epithelial cells.squamous LM.HPF (Urine sed) [#/Area] 0-2 Normal 0-2 [facility] Comment on above: Performed By: #### 1 8662246 ####[address] [address] Glucose Test strip (U) [Mass/Vol] Negative Normal Negative [facility] Comment on above: Performed By: #### 1 [id number] ####[facility] [address] [place] [address] Hemoglobin Ql (U) Negative Normal Negative [facility] Comment on above: Performed By: #### 1 [id number] ####[address] [address] Ketones (U) [Mass/Vol] Negative Normal Negative [facility] Comment on above: Performed By: #### 1 0534437 ####[address] [address] Hammon.plasma/Lith ium.RBC (Bld) [Mass ratio] 0-3 Normal 0-3 [facility] Comment on above: Performed By: #### 1 4630784 ####[address] [address] Mucus Ql (Urine sed) TRACE Normal [facility] Comment on above: Performed By: #### 1 4160312 ####[address] [address] Nitrite Ql (U) Negative Normal Negative [facility] Comment on above: Performed By: #### 1 [id number] ####[address] [address] pH (U) 6.0 [pH] Invalid Interpretation Code 5.0-9.0 [facility] Comment on above: Performed By: #### 1 2898629 ####[address] [address] Protein (U) [Mass/Vol] Negative Normal Negative [facility] Comment on above: Performed By: #### 1 7001063 ####[address] [address] Specific gravity (U) [Rel density] <=1.005 Invalid Interpretation Code 1.005-1.030 [facility] Comment on above: Performed By: #### 1 1168105 ####[address] [address] Type of Urine collection method Clean Catch Normal [facility] Comment on above: Performed By: #### 1 [id number] ####[facility] [address] [place] [address] Urobilinogen Qn (U) 0.2 {Robert'U}/dL Normal 0.0-1.0 [facility] Comment on above: Performed By: #### 1 8258030 ####[facility] [address] [place] [address] WBC Auto Ql (U) Negative Normal Negative [facility] Comment on above: Performed By: #### 1 9981348 ####[facility] [address] [place] [address] WBC LM.HPF (Urine sed) [#/Area] 0-5 Normal 0-5 [facility] Comment on above: Performed By: #### 1 [id number] ####[facility] [address] [place] [address] US Pelvis Non-OB Limitedon 0 01-04-2023 US Pelvis Non-OB Limited Exam Date/Time: 01/04/2023 13:58 EDT Reason for Exam: Abnormal CT Report IMPRESSION: STATUS POST DISCECTOMY. THE OVARIES ARE WITHIN NORMAL LIMITS. THERE IS A SMALL AMOUNT OF FREE FLUID IN THE PELVIS CLINICAL HISTORY: Abnormal CT. COMPARISON: CT abdomen pelvis from same visit COMMENT: Transabdominal images were obtained. Status post hysterectomy The right ovary measurements and an estimated volume are: Right Ovary Length: 2.1 cm Right Ovary Width: 1.8 cm Right Ovary Height: 1.1 cm Right Ovary Volume: 2.1 cm3 The left ovary measurements and an estimated volume are: Left Ovary Length: 2.4 cm Left Ovary Width: 2.6 cm Left Ovary Height: 1.3 cm Left Ovary Volume: 4.3 cm3 There are small follicular ovarian cysts. No large cyst nor adnexal mass is evident. There is a small amount of free fluid in the pelvis Ordering Provider: Josue Carrasquillo FINAL REPORT Dictated: 01/04/2023 3:55 pm Waylon Tinoco MD, V. Signed (Electronic Signature): 01/04/2023 3:55 pm Signed by: Waylon Tinoco MD, V. Transcribed by: ABHIJIT Technologist: NANCI Technical Comments Transabdominal Ultrasound Performed Normal [facility] eGFRon 01-04-2023 GFR/1.73 sq M.predicted among blacks MDRD (S/P/Bld) [Vol rate/Area] mL/min/{1.73_m2} Normal >=59 [facility] Comment on above: Order Comment: Order added by Discern Expert. Result Comment: eGFR is race adjusted. AA=. Performed By: #### 2 564757, [id number], 9700020, 1753709, 2301283 ####[facility] [address] [place] [address] GFR/1.73 sq M.predicted among non-blacks MDRD (S/P/Bld) [Vol rate/Area] mL/min/{1.73_m2} Normal >=59 [facility] Comment on above: Order Comment: Order added by Discern Expert. Result Comment: Rigger olga kidney disease could be indicated at eGFR's of less than 60 mL/min/1.73m2. Kidney failure is indicated at less than 15 mL/min/1.73m2. Performed By: #### 2 575046, [id number], 1854181, 5312071, 0957705 ####[facility] [address] [place] [address] Consultation Noteon 10-06-19 Consultation Note [id number] D:127 Normal [facility] PAP ACOG PANEL 2: 30 to 65on 09-14-2022 . . Normal [facility] Comment on above: Result Comment: Perf ormed at: WB Performed By: #### [id number] #### [facility] [address] [place] [address] Dr. Pricilla Blanco Age Gdln ACOG Testing 30-65 [facility] Comment on above: Performed By: #### [id number] #### [facility] [address] [address] [address] Pricilla Blanco DIAGNOSIS: Comment [facility] Comment on above: Result Comment: NEGA TIVE FOR INTRAEPITHELIAL LESION OR MALIGNANCY. Performed at: WB Performed By: #### [id number] #### [facility] [address] [place] [address] Dr. Pricilla Blanco HPV Aptima Negative Normal Negative [facility] Comment on above: Result Comment: This nucleic acid amplification test detects fourteen high-risk HPV types (16,18,31,33,35,39,45,51,52,56,58,59,66,68) without differentiation. Performed at: =G Performed By: #### [id number] #### [facility] [address] [address] [address] Pricilla Blanco HPV Genotype Reflex Comment Normal [facility] Comment on above: Result Comment: Crit eria not met, HPV Genotype not performed. Performed at: WB Performed By: #### 4 [id number] #### [facility] [address] [place] [address] Dr. Pricilla Blanco Methodology: Comment Normal [facility] Comment on above: Result Comment: This liquid based ThinPrep(R) pap test was screened with the use of an image guided system. Performed at: WB Performed By: #### [id number] #### [facility] [address] [place] [address] Dr. Pricilla Blanco Note: Comment Normal [facility] Comment on above: Result Comment: The Pap smear is a screening test designed to aid in the detection of premalignant and malignant conditions of the uterine cervix. It is not a diagnostic procedure and should not be used as the sole means of detecting cervical cancer. Both false-positive and false-negative reports do occur. . Performed at: WB Performed By: #### 4 [id number] #### [facility] [address] [address] [address] Pricilla Blanco Performed by: Comment Normal [facility] Comment on above: Result Comment: Gabbi Mock, Coal Unloader (ASCP) Performed at: WB Performed By: #### 4 [id number] #### [facility] [address] [place] [address] Dr. Pricilla Blanco Specimen adequacy: Comment Normal [facility] Comment on above: Result Comment: Sati sfactory for evaluation. No endocervical component is identified. Performed at: WB Performed By: #### 4 [id number] #### [facility] [address] [place] [address] Dr. Pricilla Blanco Postoperative Documentson Postoperative Documents [id number]#1.00 CD:127 Normal [facility] Consultation Noteon 09-04-20 Consultation Note [id number]#[id number] D:127 Normal [facility] IntraOperative Documentson 1 11-03-2021 IntraOperative Documents [id number]#[id number] D:127 Normal [facility] Coding Summary.on 08-31-2022 Coding Summary. CD:[id number] Gh0 bWw+PGhlYWQ+ZK6HBDNfB49 oyRPkfF6VB2qTFQ2ARUPEKE DOWW9JET7qiEJ6EHxtB4Wvk iAv VewhoTAnFC90CXy2CLD3sIz fJXqhsQ3obNHmK5o6EyReOI 23jR82SAdbMCPwBzP4QyPad jsgbWFy F3axOsUwvFNtCpm+PHRhYmx lIHdpZHRoPScxMDAlJyBzdH ziXV1aUa6qOFNoPCRihSdfx HNlOiBj t8sePZKwKIhbCE2cmGsoL1R zlIC9ADQwh7s3Dv08dVF+PH CwKOH8mPmyMTsbz913PdKih 3mlSTR6 xTQzRHzlWKT1E59nc4R2CHP hALWrEIN2cRM4vS4nsOysfa keO3WtmWZfYtZ1BCF4vODlj F7xfKwd tnireT7uXuf+N21OQM8FRAT PNF8WVvx6C0GeRvbmyMU+PC 41LBPfKV43bZNvaGJku8rzo Zc9HxFq ROEcHZM8nLfmOAvdh0MkIVE lT69fgEJeo7Q8FQIymNrhvF OlBfYviTW8mB3vDEctvsnlv 2hvdzsn Kurxi7arlg84tD77C13bXMm nIJDbDUR7GJEbDBLieLfiib 8amN8yYl2+EJdhm8fqv2qew Oh2KtHr XCHxybWpwOhuIQX4q1DsEw7 9A4YcwCihm2GfGsv4an27bL Wkt2F2zXH5PBstVUWscN0aV WxlZnQ6 ECExByGeqJ19fQOeTOfmTt5 lmPxzbAgiGZ0vNIMqxehrJX AxpD2sMTDfmFHkqXmaAP2gD TBpbjtm v091ExXkNRW3SSClnCGqA9U nzY3bRaYiHTAbYYEkB1PipS DdJKriL351RMqvBuA9CTWqf sMbJ5Vz NQRqjEnsFkA8z6C9Kh7Mz3P avsnkUKS5BNenWHWxGjC0Pc VqCaW5K9OrYhm3VXOmfCcjY D5fL7Au KXLalizdfhciaVY7MNNuDZS okV71rHNxOCysUs7ei1M4z7 84JWNfPNGnkN94Ux6rhOqlL TBwdCBU qN1oxneko4ddievbJuOfRKE lIVk9EXn8IWTzvRqxDvFnTB Y8GkM7UTI8uPYlqC0vrEzre qgbiA5k Oyc+I71azB7lVSO9CMT2spd yGJWepkMwGP20IT51V9CqKp wvdGFibGU+PGRpdiBzdHlsZ O3jIpAg q5sqn0HgCYscV3MbVQJrUGs zLvh7LGSiLRT8lSG5qN0jZJ WkJUhpg3S0zPA4F7JofrZng k8bd1hw VKHoLKdmV60jlYZyj7A3OBB qjPA5QWAexTpqLmEetK18Ji c+HRQnqYqkc2NbYmjhr3ibo 0lnkTs5 TeTxDBTbpcZikTybUYD1v8H eNc50Y85vXPmiKSYxUYJbYI HkDSJjgUpbqx7wkP3rUc2+P GNvbCB3 sHG1pQ5zLHClGcY0GNziX87 5WoRbuTRpWexum0eti0kgqA r6NySgNAUwwiPirCiiRLZ4b 0XjWr56 F40rFOkoUXAcNGLnURKzJSZ znEneyq4wbC0gEr2+PC9jb2 gcsz98iO95gKF+BASgJWW6j WxlPSdw WAKcmC8jPPejGwV6SRPnZrS jiN11cYAxVTxmUg0ssGfezW pwPC0mKSJkuqhoc192CaEmr 2xkIDEw tEAxSVzpOKT7Z60nv6T5MCD fEBBtMPK5vVJ4aF6ckVgsey ogbGVmdDsgdmVydGljYWwtY RzzR605 IHRvcDsnPlBhdGllbnQgTmF gJSp2W3VfIcn7RGFhxXlbNR 1qdXMmIOxoTp8qbPbltElkU N6gFOAz rxajm404EpLyx6eoXJAetNA oOXguLDK8T82zo1I6ZKIjKJ NaSEZ9oYA8mC1lbKcftvzlz GVmdDsg jjHmyUanBHtcLDvcR844XCB ztNfyWtUkrcJgCPErnUN8AZ 84DM40yYKhp2I9cTT1O8DyR GRpbmct kmkacHU2LKClEXNvfF72Si9 cnCwlXn9aUICcNBR0XBVphE PoS1UwuA7hCcRuUGPgIOXtS 3RleHQt FLmvV819WZisCuL3AAYcfdR gM9ReLZOooQqbIkC1d3A7Cx 1KV6F4JX63CP54rHLsi5X4g AK1X5Lc WKPeutzjeuhjoZQ0AXDlKHJ bcW72Hg3flSmiRb0mEWCoSY V6FMBtfTHqN9QubE0lDyYxQ DAwMDAw Y1XwbMHxSWxuL259HHzqCyV 4EKNytaIbQ0VoSJDvdTlxZg A8o2W6Xe3QARe9DZ95OW12m UFdq6S1 eLL4A7SjPQNgduhlxhilbFV 5VBStHWMvfM66Mq9xiJnpSx 8oFBKvJJF4XZPenFHvH7Ybq W8oSkZe KZUwAAHeQ3WtgBMtLEzpI89 7OIovMbC7RPQiqkKkV3NlRR CmyNppYeO2u0I3Xs2XYJPqH N05HZB0 tFJ9YG40RU80Z2OuXusacLT ibGU+PHRhYmxlIHdpZHRoPS ncFECkJvFgvSyqOI7uYc9mA GVyLWNv wWrcwNPkAoAuy6izGAIrZJw dUF4rtKccQ1MxdKV4ORMnv1 m1Oc89Q36wA8RetSF+PGNvb NF3zWB3 cW8wLuAzXzC0SJcrV363OoM wrYZrUijoo3gzc9vdlSl5Ex J8XCXeqqTwxBgzLUA7w7AhV p10B33u IHdpZHRoPSIxNSUiIHZhbGl vlt8kzO6bRa4+NNPseYW8bA P1nF8iMhZkKnB8CAdgP703C nRvcCIv Mkbxy1exg3atnCc7DxXiEMT zfxRnxKonETJ3u0BkPr27Y7 XfhDteq5PuAxz8hy22gMXeb 9D1kLY7 C0OfXBAyjsbgoKKvaKdcYW5 qIQLuajleQXAwxL9cFWGxD6 w8QnZdDmV0DRnwO0QmlkM0R DEwcHQg AJsyGOD0E49ij3S8DPGbOBW tNCA3pYL7kM5npGmlaivtiP VmdDsgdmVydGljYWwtYWxpZ 246IHRv vWpqEWWikA8vAAGmeFRaaSs mEX4pJFFaipujAiWFR4EXDy QwVVYHRiJLN0HnBEefiGV+P HRkIHN0 nAbnUKbiBMIlhV6wCFDvJ1j 6AvXfClF7NXjeQ6AlZDMckn gjEo45tN6hCyLsOxT3JMzzQ 9DlhiX6 OZIyoXCpIKczSHH1U84tt5Q 5EUNrFXAdAVD3zQD6nH4bsV lnbjogbGVmdDsgdmVydGljY WwtYWxp R926MJSsuVuxWpW6SlJ8ZrK 7MLu6N4JuMfk2VWTogCzxAQ 2cwPNkQKzuOt6qmQqqcUggA A8pDCGj eibzBWPhnW9rULBrmWXbnCf eMH0dPMBanwafa581NlRrEA M8WOAycAZtJ5EghE6vYjHfA DAwMDAw G2CnbVBlSOgxM196VGwiXoA 7QTBnjgZoG1SuZTOenTdiIu D9c2G7Bx2dDOLXHAOhxnmnz GQ+PHRk ZOO3nHskKAjwVWLlwH2zCSG uY9w5FaXuWwJ5YEtxE1UmGY GqqnseEp27gH3vWkZaYjE0G MwhV4Ii oqG6PFEipMUiWGkaDQI8T86 rn7A5KODzEZBuNJM8dBK5qC 1hbGlnbjogbGVmdDsgdmVyd GljYWwt SCacX477KQBjqHrgSvZxtQE sZTwvdGQ+FCPzSMW0cEjoVJ rhAHUlhR2eOLLjE0a4HeIhQ hX9SVfw I8VuFXBdphafCo65jN1qUaG aNpR4FCxlZ2IiqrM5NAWtlB TvVWaeNLE9V32vb2G0VNNpV DAwMDA7 uTY7nQ2inFhwzsnunBTwwYu xfrLyeEmnCUxcEZjzL606HJ RvcDsnPkFtYnVsYXRvcnkvU 2FtZSBE HCccX3ZfI8ZvzLunlWH+PC9 8lj10E6UiNuwtKuo3ZIUbSH C0xRK1qJ6xLGWjWQpgm0K6k RB4L7Vp vlWnfd7mg7oqBMAuBImcX40 whVLtv4D7GZZrpPV0OKVapO sqTvYkiC75Rij+PGNvbGdyb 3VwPjxj d7kkh8nkaKh5VfSyHWZdffE fmVbrEVQ8p1AoDi05V37cPF dpZHRoPSIzMCUiIHZhbGlnb a3fsZ8p Ii8+EZRqtAZ0aYO9rL3qXeS eOwY7SMyjP750KtCppMCuNo zia9mmu7djlWo0RlMzJJGgt mFsaWdu YVZ7k1YdMu51O5WxmNqwv4S hBxy5ob26hQWej7T2qOT0J6 WcSVEjlcfcpVIgzJvpJX1aG DBpbjtw PICmyT9dOYCdC5v5YoWdDhO 4INqbY4HtxzE9CRHziCYwCG OeaMXPcT6ovgalo7gxkaxaN zAwMDAw WIg1DLm4RIMioQnzVvUaCII 7AjA7GJY6mBHefI9ghSzqcz bnpB7wVsh+JPa3l4ihkPTlP N5udTT6 JG66QH95qVXht3G0aRL0F0V jKENbuhdqwvzhdNX7GRLiDK DokE71An3qzDdoTw1yXMVeM FK5QIHk hZNtI8FywY9xRkFcQIEjVLU qW5XvsRGqWHniR204MMpaPr J0RVEvewVtH7ViJAAlwUrfK sQ2b3J9 Bq8UGK11ZO63NL76oJXrx8I 1eDD1X1JxXLUrnvblglouqU K1YTGxEGHejA31Ii3ujFadH n2tFPHf ZQX7IAAczGVlA8FdnK4eIlU iTDXnDUDlR3OiaRRbDSzsU8 97GRmrSxY9LCXismPmI8BuM WFsaWdu ZqP7h8M9Lq6TXf06DR48NH0 5xTLqq2I2eMD4S3MaAFVfvk obnroyaVV6AKEaFDIicK13H k6epXeo Pb9eWTLcYTT8GNAphMBmF4Z isW2eXnRmZVEcOFGyR9VkqJ EmKQsdZ215DGblKdO1GNBbg fCbX9Py UGZwdKycYwT5w4W3Ge5MQDk dzjq7Z0VvJkppmTH+PC90YW IfTU51wIRhtMQbv6zwjGw1M zEwMCUn IHN0 (more content not included)... Normal [facility] Main OR Intraoperative Recor don 08-31-2022 Main OR Intraoperative Record IntraOp Document Type FT Summary Primary Physician: Becky Rush MD Finalized Date/Time: 08/31/22 12:31:20 Pt. Name: TIFFANY WINTERS/Sex: 1985 Female Med Rec #: [id number] Physician: Becky Rush MD Financial #: [id number] Pt. Type: A Room/Bed: Admit/Disch: 08/27/22 07:03:20 - 08/27/22 12:25:00 Institution: Case Times FT Entry 1 Patient Times In Room 08/27/22 09:19:00 Out Room 08/27/22 10:20:00 Procedure Times Start 08/27/22 09:39:00 Stop 08/27/22 10:14:00 Anesthesia Times Start 08/27/22 09:19:00 Stop 08/27/22 10:20:00 Last Modified By: Adrien Stoll 08/27/22 10:20:49 General Comments: 08/31/22 Chart opened to review and send charges [facility] CSFA Case Attendance FT Entry 1 Entry 2 Entry 3 Case Attendee Latoya Smalls MD, Becky Fisher RN, Rosy Pittman Role Performed Anesthesiologist Surgeon - Primary Line Driver - Primary Pneumatic Tester Time In 08/27/22 09:19:00 08/27/22 09:19:00 08/27/22 09:19:00 Time Out 08/27/22 10:20:00 08/27/22 10:20:00 08/27/22 10:20:00 Procedure ANTROSTOMY TURBINECTOMY ANTROSTOMY TURBINECTOMY ANTROSTOMY TURBINECTOMY ETHMOIDECTOMY(Bilateral ) ETHMOIDECTOMY(Bilateral ) ETHMOIDECTOMY(Bilateral ) Comments 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 Last Modified By: Adrien Stoll Terry T Sweene, Terry T 08/27/22 10:28:06 08/27/22 10:28:06 08/27/22 10:28:06 Entry 4 Entry 5 Entry 6 Case Attendee Adrien Stoll CST, Yari Lara Role Performed Line Driver - Primary Scrub - Primary Scrub - Primary Time In 08/27/22 09:19:00 08/27/22 09:19:00 08/27/22 09:19:00 Time Out 08/27/22 10:20:00 08/27/22 10:20:00 08/27/22 10:20:00 Procedure ANTROSTOMY TURBINECTOMY ANTROSTOMY TURBINECTOMY ANTROSTOMY TURBINECTOMY ETHMOIDECTOMY(Bilateral ) ETHMOIDECTOMY(Bilateral ) ETHMOIDECTOMY(Bilateral ) Comments IN ORIENTATION, OUT FOR OUT FOR BREAK [phone] OSIRIS AMOS BREAK [phone]. STUDENT Last Modified By: Adrien Stoll CST, Adrien Manning 08/27/22 10:28:06 08/31/22 12:29:40 08/27/22 10:28:06 Entry 7 Case Attendee Bernard NAVARRETE, Jarocho Cox Role Performed Line Driver - Relief Time In 08/27/22 09:43:00 Time Out 08/27/22 10:03:00 Procedure ANTROSTOMY TURBINECTOMY ETHMOIDECTOMY(Bilateral ) Comments BREAK RELIEF Last Modified By: Adrien Stoll 08/27/22 10:28:06 Perioperative Protocols FT Pre-Care Text: Implements protective measures prior to operative or invasive procedure, confirms identity before the operative or invasive procedure, verifies operative procedure, surgical site, and laterality Entry 1 Procedure(s) ANTROSTOMY TURBINECTOMY Patient Identity Birthday, ID Band ETHMOIDECTOMY(Bilateral ) Verified (select at Check, Patient least 2): Participation Consents / H and P Anesthesia Consent, Operative Site N/A Verified HandP, Surgery/Procedure Marking Verified Consent Surgical Site Yes Laterality Verified n/a Verified Procedure Verified Yes Correct Patient Yes Position Verified Availability Equipment, Medication Prep Dry n/a Verified (If Applicable) PreOp Antibiotic No Time Out Becky Rush MD, Given Participants Becky Rush MD, Phlilip NAVARRETE, Rosy Pittman, Adrien Stoll, Lucius OLIVER, Alan Santos Jessica D Time Out Complete 08/27/22 09:39:00 Outcomes Met? Yes Last Modified By: Adrien Stoll 08/27/22 09:42:15 Post-Care Text: The patient is free from signs and symptoms of injury caused by extraneous objects Allergy Information FT Pre-Care Text: Verifies allergies Entry 1 Allergies Reviewed? Yes Allergies Reviewed Self/Patient With Outcomes Met? Yes Last Modified By: Adrien Stoll 08/27/22 09:42:24 Post-Care Text: The patient received appropriate medication(s) safely administered during the perioperative period Surgical Procedures FT Entry 1 Procedure Description Procedure ANTROSTOMY TURBINECTOMY Modifiers Bilateral ETHMOIDECTOMY Surgeon Description BILATERAL MAXILLARY ANTROSTOMY Primary Procedure Yes Primary Surgeon Becky Rush MD Start 08/27/22 09:39:00 Stop 08/27/22 10:14:00 Anesthesia Type General Surgical Service ENT Wound Class 2 - Clean-Contaminated Last Modified By: Adrien Stoll 08/27/22 14:22:46 General Case Data FT Pre-Care Text: Classifies surgical wound, implements aseptic technique, initiates traffic control Entry 1 Case Information OR OR 2 FT Case Level Level 3 Wound Class 2 - Clean-Contaminated Specialty ENT ASA Class 2 Preop Diagnosis CHRONIC MAXILLARLY Postop Same As Preop Yes SINUSITIS J32.0 Postop Diagnosis CHRONIC MAXILLARLY Outcomes Met? Yes SINUSITIS J32.0 Last Modified By: Adrien Stoll 08/27/22 09:42:43 Post-Care Text: The patient is free from signs and symptoms of infection Skin Assessment (Pre Procedure) FT Pre-Care Text: Implements protective measures to prevent skin/ tissue injury due to thermal or mechanical sources Evalu (more content not included)... [facility] Consent for Anesthesiaon Consent for Anesthesia [id number]#1.00 CD:127 [facility] Discharge Instructionson Discharge Instructions [id number]#1.00 CD:127 [facility] IntraOperative Documentson 1 10-29-2021 IntraOperative Documents [id number]#1.00 CD:127 [facility] IntraOperative Documents [id number]#1.00 CD:127 [facility] IntraOperative Documents [id number]#1.00 CD:127 [facility] Preoperative Documentson Preoperative Documents [id number]#1.00 CD:127 [facility] Prescriptions/Work Noteson 1 10-29-2021 Prescriptions/Work Notes [id number]#1.00 CD:127 [facility] Progress Note-Physicianon Progress Note-Physician Patient: TIFFANY WINTERS Age: 37 years Sex: Female : 1985 Associated Diagnoses: None Author: Davis Ward DO Preoperative Information Patient and/or family denies any personal or family hx of difficulty/ problems with anesthesia. Stated she had a vagal response after her hysterectomy. NPO guidelines met. Re-eval prior to induction: Inital eval reviewed: No significant interval change. Anesthesia results Review of Systems Constitutional: Negative except as documented in history of present illness. Cardiovascular: cardiovascular risk assessment performed.. Respiratory: breathing feels at baseline, Sounds congested with vocalization. Antibiotics started Wednesday, afebrile, does not feel ill, denies productive cough.. Immunologic: denies current respiratory illness. Neurologic: A&O. Health Status Allergies: Allergic Reactions (Selected) Severity Not Documented Bactrim- Rash. Sulfamethoxazole- Unknown., Allergies (2) Active Reaction Bactrim Rash sulfamethoxazole unknown Current medications: (Selected) Inpatient Medications Ordered Lactated Ringers IV Lindsay 1000 mL 1,000 mL: 1,000 mL, IV, 150 mL/hr, Routine, Start date 08/27/22 7:00:00 EST, 6.7 hour(s), Total volume (mL): 1,000, 74 kg, 1.89, m2 Documented Medications Documented Fish Oil 500 mg oral capsule: 500 mg = 1 cap(s), Oral, Daily, otc, Refills(s) 0, Prophylaxis Flonase 0.05 mg/inh nasal spray: 2 spray(s), Nasal, Daily, Refill(s) 0, Allergy symptoms Multi Vitamins oral tablet: 1 tab(s), Oral, Daily, 30 tab(s), Refill(s) 0, Prophylaxis cetirizine 10 mg Tab: 10 mg = 1 tab(s), Oral, Daily, PRN Allergy symptoms, Refills(s) 0, Allergy symptoms levofloxacin 250 mg Tab: 250 mg = 1 tab(s), Oral, q24hr, X 10 day(s), # 10 tab(s), Refills(s) 0, Medications (1) Active Scheduled: (0) Continuous: (1) Lactated Ringers 1,000 mL 1,000 mL, IV, 150 mL/hr PRN: (0) Problem list: All Problems Bunion of great toe / SNOMED CT 2497635610 / Confirmed BILATERAL Fever greater than 100.4 / Patient Care / Confirmed Hx of hysterectomy / SNOMED CT 784340019 / Confirmed Hypoglycemia / SNOMED CT 945606502 / Confirmed Visit for preventive health examination / SNOMED CT 992959564 / Confirmed Screening for lipid disorders / SNOMED CT 215105997 / Confirmed Screening for diabetes mellitus / SNOMED CT 657996424 / Confirmed Pelvic congestion syndrome / SNOMED CT 05200411 / Confirmed Pelvic congestion syndrome / SNOMED CT 51223290 / Confirmed Pelvic congestion syndrome / SNOMED CT 48695883 / Confirmed Frequent episodes of sinusitis / SNOMED CT 07517884 / Confirmed Resolved: / SNOMED CT 090149680 Resolved: / SNOMED CT 295452179 Resolved: / SNOMED CT 354890211 Resolved: / SNOMED CT 610301182 Canceled: Sinusitis, acute / SNOMED CT 67865215 Canceled: Chronic pelvic pain in female / SNOMED CT 692786201 Canceled: Echogenic intracardiac focus of fetus on ultrasound / SNOMED CT 0693706091 Canceled: Group B streptococcus / SNOMED CT 555682092 Canceled: Pelvic pain in female / SNOMED CT 6566772319 Canceled: GBS (group B streptococcus) infection / SNOMED CT 2521885504 Canceled: Umbilical hernia / SNOMED CT 9137993513 Canceled: Umbilical pain / SNOMED CT 176425142, Active Problems (11) Bunion of great toe Fever greater than 100.4 Frequent episodes of sinusitis Hx of hysterectomy Hypoglycemia Pelvic congestion syndrome Pelvic congestion syndrome Pelvic congestion syndrome Screening for diabetes mellitus Screening for lipid disorders Visit for preventive health examination Histories Past Medical History: Active Hypoglycemia ([id number]) Bunion of great toe ([id number]) Comments: 09/13/2012 EST 7:29 DEIDRE - Katrin NAVARRETE, Geri BILATERAL Resolved ([id number]): Onset on 01/07/2018 at 32 years. Resolved on 10/13/2018 at 33 years. ([id number]): Onset on 08/27/2015 at 30 years. Resolved on 04/29/2016 at 30 years. ([id number]): Onset on 06/27/2014 at 29 years. Resolved on 01/29/2015 at 29 years. ([id number]): Onset on 08/16/2013 at 28 years. Resolved in 2013 at 28 years. Family History: Primary malignant neoplasm of colon Aunt Hypertension Father Mother Diabetes mellitus type 2 Mother Father Diverticulitis of colon Father Procedure history: Hysterectomy ([id number]) on 08/30/2020 at 35 Years. Comments: 03/10/2021 10:27 EDT - Stella Reno MA, Dr. in [place] Diagnostic laparoscopy ([id number]) on 04/29/2020 at 34 Years. Suciton D&C on 11/25/2013 at 28 Years. Bunionectomy ([id number]). Comments: 04/23/2020 15:38 EDT - Katrin NAVARRETE, Geri carlson Social History Social & Psychosocial Habits Alcohol 04/29/2020 Risk Assessment: Low Risk 05/13/2020 Use: Current Type: Beer, Wine Frequency: 1-2 times per week Employment/School 01/28/2015 Status: Employed [employer] (more content not included)... Normal [facility] Comment on above: Result Comment: Elec tronically Signed By: Davis Ward DO\.br\Date and Time Signed: 08/28/22 16:07 EST Capillary Glucose POCon Glucose [Mass/Vol] 83 mg/dL Normal 55-99 [facility] Comment on above: Result Comment: Edith trejo Meter Performed By: #### 2 [id number] #### [facility] [address] [place] [address] Consent for Treatmenton Consent for Treatment [id number]#1.00C D:127 Normal [facility] H&P Updateon 08-27-2022 H&P Update [id number]#1.00 CD:127 Normal [facility] Inpatient Patient Summaryon 08-27-2022 Inpatient Patient Summary [address] [address] [facility] Clinical Discharge Instructions PERSON INFORMATION Name: TIFFANY WINTERS PHYSICIANS Admitting Physician: Becky Rush MD Attending Physician: Becky Rush MD PCP: Za Dooley MD Discharge Diagnosis: Chronic maxillary sinusitis Comment: PATIENT EDUCATION INFORMATION Instructions: Endoscopic Ethmoidectomy and Antrostomy, Care After; Post Op Patient Instructions - FT (CUSTOM) Medication Leaflets: Follow up: With: Address: When: Becky Rush [address] [place] [address] [address], [address] [place] [id number] Tysdo (1) In 8 days 09/04/2022 MEDICATION LIST Medications to Continue with No Changes Other Medications cetirizine (cetirizine 10 mg Tab) 1 Tablets By Mouth every day as needed Allergy symptoms. fluticasone nasal (Flonase 0.05 mg/inh nasal spray) 2 Sprays Nasal Inhalation every day., out right now levofloxacin (levofloxacin 250 mg Tab) 1 Tablets By Mouth every 24 hours for 10 Days. multivitamin (Multi Vitamins oral tablet) 1 Tablets By Mouth every day. omega-3 polyunsaturated fatty acids (Fish Oil 500 mg oral capsule) 1 Capsules By Mouth every day. otc. Comment: Normal [facility] Main OR PACU I Recordon Main OR PACU I Record PACU Phase I Document Type FT Summary Primary Physician: Becky Rush MD Finalized Date/Time: 08/27/22 11:20:42 Pt. Name: TIFFANY WINTERS/Sex: 1985 Female Med Rec #: [id number] Physician: Becky Rush MD Financial #: [id number] Pt. Type: A Room/Bed: Admit/Disch: 08/27/22 07:03:20 - Institution: Case Times PACU I FT Pre-Care Text: Identifies barriers to communication and implements measures to provide psychological support Develops individualized plan of care, and ensures continuity of care Maintains patient's dignity and privacy, and maintains patient confidentiality Identifies and reports philosophical, cultural, and spiritual beliefs and values Identifies individual values and wishes concerning care Implements aseptic technique, and administers prescribed antibiotic therapy and immunizing agents as ordered Evaluates postoperative tissue perfusion Implements thermoregulation measures, and monitors body temperature Evaluates postoperative respiratory status Evaluates postoperative cardiac status Evaluates postoperative neurological status Assesses pain control, collaborated in initiating patient-controlled analgesia and implements alternative methods of pain control Verifies allergies, administers prescribed medications and solutions, evaluates response to medications Entry 1 In PACU I 08/27/22 10:22:00 Discharge from PACU 08/27/22 10:52:00 I Outcomes Met? Yes Last Modified By: India Zee RN 08/27/22 11:19:22 Post-Care Text: The patient demonstrates knowledge of the expected response to the operative or invasive procedure The patient's care is consistent with the individualized perioperative plan of care The patient's right to privacy is maintained The patient's value system, lifestyle, ethnicity, and culture are considered, respected, and incorporated into the perioperative plan of care The patient participates in decisions affecting his or her perioperative plan of care The patient is free from signs and symptoms of infection The patient has wound/tissue perfusion consistent with or improved from baseline levels established preoperatively The patient is at or returning to normothermia at the conclusion of the immediate postoperative period The patient's respiratory function is consistent with or improved from baseline levels established preoperatively The patient's cardiovascular status is consistent with or improved from baseline levels established preoperatively The patient's cardiovascular status is consistent with or improved from baseline levels established preoperatively The patient demonstrates and/or reports adequate pain control throughout the perioperative period The patient received appropriate medication(s), safely administered during the perioperative period Acuity Level PACU I FT Entry 1 Start Time 08/27/22 10:22:00 Stop Time 08/27/22 10:52:00 Acuity Level Acuity Level I Last Modified By: India Zee RN 08/27/22 11:20:17 Finalized By: India Zee RN Document Signatures Signed By: India Zee RN 08/27/22 11:20 India Zee RN 08/27/22 11:20 India Zee RN 08/27/22 11:20 [facility] Main OR PACU II [facility] Main OR PACU II Record PACU Phase II Document Type FT Summary Primary Physician: Becky Rush MD Finalized Date/Time: 08/27/22 12:42:53 Pt. Name: TIFFANY WINTERS Saleem Conrad./Sex: 1985 Female Med Rec #: [id number] Physician: Becky Rush MD Financial #: [id number] Pt. Type: A Room/Bed: [facility] Admit/Disch: 08/27/22 07:03:20 - Institution: Case Times PACU II FT Pre-Care Text: Identifies barriers to communication and implements measures to provide psychological support and determines knowledge level Develops individualized plan of care, and ensures continuity of care Maintains patient's dignity and privacy, and maintains patient confidentiality Identifies and reports philosophical, cultural, and spiritual beliefs and values Identifies individual values and wishes concerning care administers prescribed antibiotic therapy and immunizing agents as ordered, Evaluates postoperative tissue perfusion Implements thermoregulation measures, and monitors body temperature Evaluates postoperative respiratory status Evaluates postoperative cardiac status Evaluates postoperative neurological status Assesses pain control, collaborated in initiating patient-controlled analgesia and implements alternative methods of pain control Verifies allergies, administers prescribed medications and solutions, evaluates response to medications Entry 1 In PACU II 08/27/22 10:55:00 Discharge from PACU 08/27/22 12:25:00 II Outcomes Met? Yes Last Modified By: Luis Lemon RN 08/27/22 12:40:49 Post-Care Text: The patient demonstrates knowledge of the expected response to the operative or invasive procedure The patient's care is consistent with the individualized perioperative plan of care The patient's right to privacy is maintained The patient's value system, lifestyle, ethnicity, and culture are considered, respected, and incorporated into the perioperative plan of care The patient participates in decisions affecting his or her perioperative plan of care. The patient is free from signs and symptoms of infection The patient has wound/tissue perfusion consistent with or improved from baseline levels established preoperatively The patient is at or returning to normothermia at the conclusion of the immediate postoperative period The patient's respiratory function is consistent with or improved from baseline levels established preoperatively The patient's cardiovascular status is consistent with or improved from baseline levels established preoperatively The patient's neurological status is consistent with or improved from baseline levels established preoperatively The patient demonstrates and/or reports adequate pain control throughout the perioperative period The patient received appropriate medication(s), safely administered during the perioperative period Finalized By: Luis Lemon RN Document Signatures Signed By: Luis Lemon RN 08/27/22 12:42 Normal [facility] Main OR Preoperative Recordo n 08-27-2022 Main OR Preoperative Record PreOp Document Type FT Summary Primary Physician: Becky Rush MD Finalized Date/Time: 08/27/22 09:49:34 Pt. Name: JETIFFANY FONSECA/Sex: 1985 Female Med Rec #: [id number] Physician: Becky Rush MD Financial #: [id number] Pt. Type: A Room/Bed: Admit/Disch: 08/27/22 07:03:20 - Institution: Case Times PreOp FT Pre-Care Text: Verifies consent for planned procedure, identifies individual values and wishes concerning care, includes family members in perioperative teaching Entry 1 Patient Times. In Pre Surgery 08/27/22 07:10:00 Out Pre Surgery 08/27/22 09:17:00 Outcomes Met? Yes Last Modified By: Adrien Stoll 08/27/22 09:49:32 Post-Care Text: The patient participates in decisions affecting his or her perioperative plan of care Finalized By: Adrien Stoll Document Signatures Signed By: Adrien Stoll 08/27/22 09:49 Normal [facility] Monitor Recordon 08-27-2022 Monitor Record [id number] CD:127 Normal [facility] Monitor Record [id number]#1.00 CD:127 Normal [facility] Monitor Record [id number]#1.00 CD:127 Normal [facility] Operative Reporton Operative Report SURGERY DATE: 08/27/2022 PREOPERATIVE DIAGNOSIS: Chronic maxillary sinusitis POSTOPERATIVE DIAGNOSIS: Chronic maxillary sinusitis OPERATION: Bilateral maxillary antrostomy ANESTHESIA: General endotracheal COMPLICATIONS: None FINDINGS: Grossly normal bilateral sinus anatomy. INDICATIONS: This 37-year-old woman has chronic maxillary sinusitis unresponsive to aggressive medical management. PROCEDURE: The patient identified in the Holding Area and taken back to the Operating Room where she was placed in a supine position. After induction of general endotracheal anesthesia, the table was turned and the head elevated 20 degrees. The face was draped in a sterile fashion and Afrin-soaked pledgets were placed in each side of the nose. After waiting adequate time for decongestion, the Afrin pledgets were removed and the nose was copiously irrigated bilaterally. The right nose was then approached with the nasal endoscope and lidocaine 1% with 1:100,000 epinephrine injected into the middle turbinate and lateral nasal wall. Attention was then to the left nose and the same procedure performed. After waiting adequate time for hemostasis, attention was returned to the right nose. A curved scissor to the right was used to incise the middle turbinate and it was removed with an ethmoid forcep. The posterior root of the middle turbinate was prophylactically cauterize to minimize the risk of postoperative bleeding. The uncinate process was then incised with a sickle knife, removed with an ethmoid forcep. The natural ostium of the maxillary sinus was then identified with a Augusta seeker and opened posteriorly with a straight cutting forcep and inferiorly with side biting and back biting forceps. The nose was then copiously irrigated and attention turned to the left nose where the same procedure was performed. The patient was then awakened and taken to the Recovery Room in good condition. Bronwyn Castano Jr. Dictated: 08/27/2022 [id number] Transcribed: 08/27/2022 cc:Roxie Brooks CNP [facility] Comment on above: Result Comment: Elec tronically Signed By: Becky Rush MD\.br\Date and Time Signed: 08/27/22 11:12 EST Operative Report Patient: TIFFANY WINTERS Age: 37 years Sex: Female : 1985 Associated Diagnoses: None Author: Becky Rush MD Postoperative Information Procedure: Huy MMA Preoperative Diagnosis: Chronic maxillary sinusitis ([id number] J32.0, Working, Medical). Postoperative Diagnosis: Chronic maxillary sinusitis ([id number] J32.0, Discharge, Medical). Performed by: Becky Rush MD. Findings: Grossly normal anatomy. Specimens Removed: LT and RT sinus contents. Estimated Blood Loss: 20 ml. Medications Complications: None. Normal [facility] Comment on above: Result Comment: Elec tronically Signed By: Becky Rush MD\.br\Date and Time Signed: 08/27/22 10:41 EST Outpatient Surgery Discharge Instructionon 08-27-2022 Outpatient Surgery Discharge Instruction [place] [id number] Patient Discharge Instructions PERSON INFORMATION Name: JEMMA TIFFANY Monge Date of : 1985 Current Date: 08/27/2022 11:55:32 PHYSICIANS Admitting Physician: Becky Rush MD Discharge Diagnosis: Chronic maxillary sinusitis TIFFANY WINTERS has been given the following list of follow-up instructions, prescriptions, and patient education materials: PATIENT FOLLOW-UP INFORMATION Diet: Regular Discharge Activity: Expect minimal amount of drainage and/or bleeding, Activity as tolerated Call Your Doctor For: Persistent or heavy bleeding Additional Instructions: No strenuous activity or nose blowing Salt water sinus irrigations 2-3 times per day IF UNABLE TO CONTACT YOUR PHYSICIAN AND YOU FEEL IT IS AN EMERGENCY, GO TO THE NEAREST EMERGENCY ROOM OR CALL 911 JEMMA Mahmood REBECCA A, have received the attached patient education materials/instructions and have verbalized understanding: May we do a follow up call? Yes No I was present when discharge instructions were given Patient Signature Date Clinican/Nurse Signature _ Date Follow up: With: Address: When: Becky Rush [address] [place] [address], [address] [place] [phone] Business (1) In 8 days 09/04/2022 Pharmacy Information: You may receive a survey from Jovanni Johnston asking you to rate your care experience. Your feedback is important and will help us understand what we do well and how we can improve the quality of care we provide to you, your loved ones and our community. It?s an honor to serve you. Thank you for choosing [facility] HERE ARE THE MEDICATION CHANGES THAT OCCURRED DURING YOUR HOSPITAL STAY Medications to Continue with No Changes Other Medications cetirizine (cetirizine 10 mg Tab) 1 Tablets By Mouth every day as needed Allergy symptoms. fluticasone nasal (Flonase 0.05 mg/inh nasal spray) 2 Sprays Nasal Inhalation every day., out right now levofloxacin (levofloxacin 250 mg Tab) 1 Tablets By Mouth every 24 hours for 10 Days. multivitamin (Multi Vitamins oral tablet) 1 Tablets By Mouth every day. omega-3 polyunsaturated fatty acids (Fish Oil 500 mg oral capsule) 1 Capsules By Mouth every day. otc. PATIENT EDUCATION INFORMATION Instructions: Endoscopic Antrostomy, Care After This sheet gives you information about how to care for yourself after your procedure. Your health care provider may also give you more specific instructions. If you have problems or questions, contact your health care provider. What can I expect after the procedure? After the procedure, it is common to have: ? Mild pain. ? A stuffy nose (nasal congestion). ? Some bloody drainage from your nose. Follow these instructions at home: Medicines ? Take unzc-llm-lsavvdn and prescription medicines only as told by your health care provider. ? If you were prescribed an antibiotic medicine, take it as told by your health care provider. Do not stop taking the antibiotic even if you start to feel better. ? Do not drive or use heavy machinery while taking prescription pain medicine. Nose care ? If you have a gauze pad bandage (dressing) under your nose, keep this dressing clean. Change it if it gets soaked with nasal drainage. ? Check your nasal dressing often for signs of thick discharge, more blood, or more discharge of clear fluid. ? Follow instructions from your health care provider about using saline nasal sprays or washing out (irrigating) your nasal cavity. Managing pain and swelling ? Keep your head raised (elevated) when you are lying down. You can use a pillow to do this. ? If directed, put ice on the affected area: ? Put ice in a plastic bag. ? Place a towel between your skin and the bag. ? Leave the ice on for 20 minutes, 2?3 times a day. Activity ? Return to your normal activities as told by your health care provider. Ask your health care provider what activities are safe for you. ? Do not lift anything that is heavier than 10 lb (4.5 kg) until your health care provider says that it is safe. ? Do not bend over until your health care provider says that it is safe. ? Ask your health care provider when it is safe for you to drive. ? Avoid these activities as directed by your health care provider: ? Blowing your nose. ? Coughing or sneezing. If you cannot stop a sneeze, sneeze with your mouth open. ? Straining on the toilet. General instructions ? Do not use hot water when taking a bath or shower. Do not swim or use a hot tub until (more content not included)... Normal [facility] Patient Education - Texton 1 10-28-2021 Patient Education - Text ENT Endoscopic Antrostomy, Care After This sheet gives you information about how to care for yourself after your procedure. Your health care provider may also give you more specific instructions. If you have problems or questions, contact your health care provider. What can I expect after the procedure? After the procedure, it is common to have: ? Mild pain. ? A stuffy nose (nasal congestion). ? Some bloody drainage from your nose. Follow these instructions at home: Medicines ? Take htub-qhb-witqitb and prescription medicines only as told by your health care provider. ? If you were prescribed an antibiotic medicine, take it as told by your health care provider. Do not stop taking the antibiotic even if you start to feel better. ? Do not drive or use heavy machinery while taking prescription pain medicine. Nose care ? If you have a gauze pad bandage (dressing) under your nose, keep this dressing clean. Change it if it gets soaked with nasal drainage. ? Check your nasal dressing often for signs of thick discharge, more blood, or more discharge of clear fluid. ? Follow instructions from your health care provider about using saline nasal sprays or washing out (irrigating) your nasal cavity. Managing pain and swelling ? Keep your head raised (elevated) when you are lying down. You can use a pillow to do this. ? If directed, put ice on the affected area: ? Put ice in a plastic bag. ? Place a towel between your skin and the bag. ? Leave the ice on for 20 minutes, 2?3 times a day. Activity ? Return to your normal activities as told by your health care provider. Ask your health care provider what activities are safe for you. ? Do not lift anything that is heavier than 10 lb (4.5 kg) until your health care provider says that it is safe. ? Do not bend over until your health care provider says that it is safe. ? Ask your health care provider when it is safe for you to drive. ? Avoid these activities as directed by your health care provider: ? Blowing your nose. ? Coughing or sneezing. If you cannot stop a sneeze, sneeze with your mouth open. ? Straining on the toilet. General instructions ? Do not use hot water when taking a bath or shower. Do not swim or use a hot tub until your health care provider approves. ? Do not use any products that contain nicotine or tobacco, such as cigarettes and e-cigarettes. These products can delay healing. If you need help quitting, ask your health care provider. ? To prevent or treat constipation while you are taking prescription pain medicine, your health care provider may recommend that you: ? Drink enough fluid to keep your urine pale yellow. ? Take rplo-udt-pszhbuj or prescription medicines. ? Eat foods that are high in fiber, such as fresh fruits and vegetables, whole grains, and beans. ? Limit foods that are high in fat and processed sugars, such as fried and sweet foods. ? Keep all follow-up visits as told by your health care provider. This is important. You will need to return to see your surgeon about 1 week after the procedure. Contact a health care provider if: ? You have: ? Chills or a fever. ? Thick, bloody, or watery discharge from your nose. ? A headache or stiff neck. ? Any change in vision. ? Your pain is not controlled by your pain medicine. ? You are not able to breathe through your nose after your packing is removed. Get help right away if: ? You have heavy bleeding from your nose. ? You have any loss of vision. Summary ? After the procedure, it is common to have mild pain, a stuffy nose (nasal congestion), and some bloody drainage from your nose. ? Take cnbx-nnc-zqvwreu and prescription medicines only as told by your health care provider. Follow instructions from your health care provider about using saline nasal sprays or washing out (irrigating) your nasal cavity. ? Ask your health care provider what activities are safe for you. ? Do not use hot water when taking a bath or shower. Do not swim or use a hot tub until your health care provider approves. This information is not intended to replace advice given to you by your health care provider. Make sure you discuss any questions you have with your health care provider. Document Released: 02/28/2018 Document Revised: 08/26/2018 Document Reviewed: 02/28/2018 [employer] Patient Education ? 2019 PPS. [facility] Progress Note-Physicianon Progress Note-Physician Patient: TIFFANY WINTERS Age: 37 years Sex: Female : 1985 Associated Diagnoses: None Author: Davis Ward DO Postoperative Information Post Operative Note: Post Anesthesia Care Unit. Physical Examination Vital Signs (last 24 hrs) Last Charted Temp Oral 36.7 DegC (AUG 27 07:21) Heart Rate Apical 72 bpm (AUG 27 07:21) Resp Rate 11 br/min (AUG 27 10:47) SBP H 143mmHg (AUG 27 11:45) DBP 89 mmHg (AUG 27 11:45) SpO2 100 % (AUG 27 11:45) Pain assessment: Pain Assessment 08/27/2022 11:45 EST Preliminary Pain Scale 1 08/27/2022 11:45 EST Primary Pain Location Nose 08/27/2022 10:59 EST Preliminary Pain Scale 2 08/27/2022 10:59 EST Primary Pain Location Nose 08/27/2022 10:47 EST Pain Symptoms Self Report Yes, able to self report Preliminary Pain Scale 2 Primary Pain Location Nose Primary Pain Laterality Bilateral Primary Pain Radiation No Patient Preferred Pain Tool Numeric rating Numeric Pain Scale 2 Numeric Pain Score 2 08/27/2022 10:37 EST Pain Symptoms Self Report Yes, able to self report Preliminary Pain Scale 2 Primary Pain Location Nose Primary Pain Laterality Bilateral Primary Pain Radiation No Patient Preferred Pain Tool Numeric rating Numeric Pain Scale 2 Numeric Pain Score 2 08/27/2022 10:32 EST Pain Symptoms Self Report No, able to self report 08/27/2022 10:22 EST Pain Symptoms Self Report No, able to self report 08/27/2022 7:21 EST Preliminary Pain Scale 0 08/27/2022 7:21 EST Primary Pain Location Nose Numeric Pain Scale 0 = No pain . General: No acute distress. HENT: dentition at preop baseline.. Respiratory: Respirations are non-labored. Cardiovascular: stable hemodynamics. Neurologic: interactive. Assessment Anesthetic outcome No anesthetic complications noted. Adequate pain relief. adequate hydration. PONV controlled. Plan Transfer/ Discharge: Patient can be discharged from PACU when criteria met. Condition good. Normal [facility] Comment on above: Result Comment: Elec tronically Signed By: Davis Ward DO\kecia\Date and Time Signed: 08/27/22 14:45 EST Coding Summary.on 08-25-2022 Coding Summary. CD:[id number] Gh0 bWw+PGhlYWQ+HX9CVRPfR46 ghTJszW3WL0qHHK6LEWRSVK LOCA4XYF1hdHF4YSawW4Yky iAv AzylsMBiQP04SZt4ZZR6zQc gWUfhyD1vwLHkV8r6XxHuFZ 54dN80EXwuMZFoSnF8YpTna jsgbWFy Z3gaNsOkhOZkInp+PHRhYmx lIHdpZHRoPScxMDAlJyBzdH cqGO6yOm2gOVDbGTUbuAtxd HNlOiBj k8ygMEKaUGmiSY4vwFyaU8Q vvYR6LERva4b8Cv13qQM+PH QiSNJ4jEzaVHqfz401JxNcq 9grFRW8 gXUjKFijQZW9Q75eu8P5VTB zQUBkMSU5qJM9sR3nmYnuvb jbU9TrtYKaRkH0RLC5gVKbr E0blIqv iylidJ6lZee+Z99RYW3LLFT ZMK4ZPcl2F0YiVwameOB+PC 15SUFfND22zZRszFIod7nvh Ep6MsIp RMToXME5lDqqHNmhy3PfXHQ fO62xbGBvn9R0NXMbaNgovV NkYqWcuAH9hJ3lLOhuyaxwe 2hvdzsn Feozu2ifmx40uR39F84eTLv rSPDeHEI6MNHjCEQubHvpxf 6kmR0cOu7+LOarh9igo4fxy Yh1NbZv RQLisfEinNvbNKC0w5RfRz5 4R8ZazLfpn0NyYuo7mg54nT Yxh4M3dAA3UYjlJHQtiI4vG WxlZnQ6 DOBmHxUzdE47wDNvCZnkNb0 anBecoPrtSO3sCJNxusicMH FajP9wNAOmtTCliTizMI8cX TBpbjtm f706NmMoWOM7PXGoqPGmM0I zhS8kJkXlKHRzHCApB6YgdV EbFLmgP082YYyaAsP1BEUcp hBhW6Mx PPPusIpfBkW7n7I3Dz9Jz3I gxemcMBF1DNmjNBIzNiE1Sd ZqIxD2I0LuTqd8ZMIuuEtkO G1kT4Eg YMXmvbovxdtpaIP1BMAbMRX bfU51eMMaIScjAe5iw3L0s3 22NOSuIJIeeL49Ji0tfTvrJ TBwdCBU lE8vantxe3xgbtggEdKmDAQ cXPc4GDs6VWHfhAycXzFlNK Z0DbF8HXP2gRZqpC7avQxbu tqyyY7l Oyc+I85lxU6vRLJ7SHJ7yqt rCAYjkyMbOA49IV24G8SbVf wvdGFibGU+PGRpdiBzdHlsZ Q8pKyJt t4lrk2AbEUvkQ7PhJYKkVEl cAhi3IJSyPXC2tJM4rF1yAP LcFCctl3F8eSN5C6DwgbGcy m7gm2mw RNQgOUpqW56rvPLjn5T0ZTV jiAV3FQRayWglShHifI30Hj c+SNJclMjcm2EhBpmsl4bgm 3clxOl4 TeVwGYQdkgXksJtzGUS1c5Q gZz92U80cYVarZSOhUTIrVZ SdQTUgxQspfg1koN3iBu6+P GNvbCB3 nBR0pX1lTKUpPvL2WMxiZ12 4FqHvzZFiXxfvh9mpo6xsrX p8HwHiQJFrjoOizHabEIB4s 5FhFw34 W39hPHqeLHGzQVEzUHZeVTW hfUrebj3eiZ8cMn7+PC9jb2 gjyj16aI15uMG+LENlGGI2d WxlPSdw ALFspG1eUKlvDuD5CFHsMoE paW16eERxCDwtTv5onJxbgN xsMW3lPPCygmamw384YxMpq 2xkIDEw mPPtUMpiZZS6N89or8U1UAB cWXYaUKH1eXK3vO9clResrp ogbGVmdDsgdmVydGljYWwtY QeuW386 IHRvcDsnPlBhdGllbnQgTmF oPCw3A9DlCsk5BZVvoWzyOD 6dmZSrQKcqKm1dqNsjeTemV X1uLRVz ldoyo192CbQko1keAGIihMZ vEDkvNKO1Y12fb2Z2BLBtZR GxWKH7qBB8sV3kiZrftvbpy GVmdDsg onIhvMfeYTuxXCjfJ660WFY hlZcoWkUuctMcCGYtpUR7NB 16OP62tZPmf4K7kML9J5MeP GRpbmct accyeGB0NHLqGGGsmS97Tn4 bqMoyGr5uDACgCJJ2KOQjiN QwQ6AqsL1mJwOhSXAwYMHtP 3RleHQt FYayQ931QBjoEtT9NMLygbN fK5BwIJMgiLswCrZ2z7D7Sl 6JP8E6WL98PD45rGUjx6Y7g AV2U5Hj ZAYpzvvdignrbTN9DPWpYHU ztC48If4toUjvXh3oILAvLN I0RIVcnNQxB9FroR1eAlNkR DAwMDAw N7GldZXuMUiwR862IVejPrY 6HJMxbmCdH1DjHFJcqOrdWg O7f6S3Zi7RNGt6PP27NY37n POmf0Y9 sNK5J4KgGJFtxjwdsrdmgWR 6USGaLUTfaK96Ha9qzLcgIf 3rOXKkVKB8LZHlaYPnR4Hpz L2tOpVm LIOdCXXlG7AieXGyQOnyV76 0ENyqOgB7MMSqnpHxZ6HnLK AxcIkpMhQ2m3U4Kl1ZXDNdT M39HTA0 oJF3VO41UV17Q9ZvPiddbVB ibGU+PHRhYmxlIHdpZHRoPS ukBWGrKsEpvMtnMR6qZj5xE GVyLWNv xYwkvOOgRyUsh4tbTAXqRRc xIM6ofFncJ3JidQC9BWMfw4 g7Pp20E02dL2AlbMW+PGNvb JT8rFA7 qL1fDrOrJjY6ZUnpF524CpK oaUXkEbnzz7dsl0dmiAh9Cr F1ZXBwngFjoPoaHGW8y6ZpB s30P22n IHdpZHRoPSIxNSUiIHZhbGl qli8veH1yLy0+JZUsdKY6uZ N4dV1uBdPpNwJ6OWxzF247G nRvcCIv Uopgu1irx2syeTg8OlDcPDZ iutGqqSjgCLY0q4ZjTh39G4 EukJdes1YrWta2pd02aVIqs 5J3vPL6 F3ZvTBNokilvsIRisAewQU7 aEXXnrxtuMDLwyX3pXYUcB5 j5DgWmGdC5MXdhI7NanoD8Z DEwcHQg GNfxOCJ6J10bg5P1MOQmEFY uEIJ2yPD7jN3uxCnipruzsG VmdDsgdmVydGljYWwtYWxpZ 246IHRv oBijCIBevO9eERIfiLKcbXz pRR2qOWCebzitNhHNT2TLWi HkHZDMTlKAS0WvKNexnKN+P HRkIHN0 hGqmDKsmFDXylE6mPCJgL2z 3LrSfBwI4GAbfX7UxUWLedy jrVc98iE8xMvVfOaJ8GNnnS 1SowmW8 XKUwlLLnCLetYDO7A83sg4K 6LDYzGZGuBQL9bKJ6vP2vaK lnbjogbGVmdDsgdmVydGljY WwtYWxp V817CPGbwXdmQaZ0ClU7GxM 1STc4G7CfJyr1ZOKfwXuwCM 0odLUvMZrcEu7anNfvzCxmO W3nIURn igzxMAEkpG2gMBOhhFPlxJt iVL0sADSctkjmq419OlIrSD W7IVQldZJgE6WkwS9gXsToE DAwMDAw M0MwbBCqIAjxS499SDyhJrI 4GGXwmiEgW8RoKOEfoYjzPe H8d5U9Dt6gKZRHLBWhnmput GQ+PHRk COP1bHxtFFdaIQAwfJ6hFMG sH0z5BsHqPvV2EFnfR9TpVF UejcgiLz67sK3eAeAjHjR8D VidP3Qo xwF1LBTanCBsPYguTYT2A61 ts8H2ANGpABVwMOD4fHT5dM 1hbGlnbjogbGVmdDsgdmVyd GljYWwt NEgdU402GTVqkQugJlUoxHR sZTwvdGQ+OBQkHPH3bNeiZZ nyNUHtsJ8hHDAfO9j2QtGvJ jG8BFvu N9ErHLLzmgsaUo15kE3pAhY sFoP1GJyaY3BcziK3HGGlkZ UlPYdkLQP1L25ni2L0BDQxT DAwMDA7 dUJ7dT6ivWxifmsxmOOsoUu paeYdtScpBEhxQSzaE534LT SxfAoiCh93sLFqbDogqnA2Y 3RkPjwv dHI+SY71QJErXP91pQEdfNX qs0xwiDa7EqChEFXqROW5gH dzZEjji0VbKJMdJ46fiGHdo 3H3CYKu vKzfsSTdWoHrpFD1yH4fNEj hhdfov6ydqdcgBxptv8mpwf 40iA25W94hYQsvBKSkSWVsU CUiIHZh iBjnrt2ilR2sMa7+PGNvbCB 6bSG3aP7zZyUwPeB6NNgqH7 17PfGwiLNqMhizg0esh0gbj Ed5DuYj JCTrmoOdpQipVLL0l8MrCy7 8P97lBPwbIXOjXDJnKMZwNQ AncMqkrc5nhA3tUf6+PC9jb 5zquc59 lJ58fSP+LFFyVOE4pFmwLIv bYVXspA0xSHizWeK1HUUjOe BjcA28mQTqCBnsCw3baZrhg YerLZ1b SDSgqmzlh135AoXjo7zuUHB ebRKoXFzsHQJ1T88bd7I9FV ZlPDTiPQN2wJH6yF8dbSzll jogbGVm sDilcrUysFckGEluEYxsD29 0XNPeeSlhWpYiuFMwJ3eoxo PCBY5sGbhwjXA+UXRkTJK6d WxlPSdw RZPahY1bYXDxM6a1KkLuEeJ 7MIlfB0BkgpY6FJUzdHXkER FojHRDdU9wbpagp8uqbcrqX zAwMDAw BOo7VMo2XEYjtBidEnBvBDZ 2ZvS3GHU7uAIitL1rzVfwsp mtxO0bNrv+RklOOjwvdGQ+P HRkIHN0 pYzrYOufLUCydC9vABCeT6b 5ToLbUtU7ARunV9PhiwM5TJ RinTHjRPYbrSBNqP5khusen 2xvcjog DyPyJPTaIVi1ZNi4DHOfsAz lHeGsVBZ8PwM7DFT8zAFklX 4uzOcpxyssxX4aBan+TVJOO jwvdGQ+ CNVdPJV9dMvcSPozRVVcpT6 uTDEyS7a8FhKvHkY6EOejX0 FtgrR7AGQnaZNrWAYgjVLOa R8foekm k7vaxpewIoXkXWLeKYi2MIz 5KXSwlPrrCtWgIOD6MsL4CT V6vVRwsC8tsFgueysglJ3kU yc+UGF5 CFR8GE56KI23R8CeAczxwNR ibGU+PHRhYmxlIHdpZHRoPS apOUZjRpVqjEsrAB9cXr9kF GVyLWNv bGxh (more content not included)... Normal [facility] Auto Diffon 08-21-2022 Basophils/100 WBC (Bld) 0.6 % Normal 0.0-2.0 [facility] Comment on above: Order Comment: Order Added by Discern Expert. Performed By: #### 2 [id number] #### [facility] [address] [place] [id number] Basophils/Leukocyte s Auto (Bld) [Pure # fraction] 0.0 E9/L Normal 0.0-0.2 [facility] Comment on above: Order Comment: Order Added by Discern Expert. Performed By: #### 2 [id number] #### [facility] [address] [place] [id number] Eosinophils/100 WBC (Bld) 1.3 % Normal 0.0-8.0 [facility] Comment on above: Order Comment: Order Added by Discern Expert. Performed By: #### 2 [id number] #### [facility] [address] [place] [id number] Eosinophils/Leukocy gary Auto (Bld) [Pure # fraction] 0.1 E9/L Normal 0.0-0.5 [facility] Comment on above: Order Comment: Order Added by Discern Expert. Performed By: #### 2 [id number], [id number], [id number] #### [facility] [address] [place] [address] 58407 Lymphocytes/100 WBC (Bld) 23.4 % Normal 14.0-50.0 [facility] Comment on above: Order Comment: Order Added by Discern Expert. Performed By: #### 2 059390, [id number], [id number] #### [facility] [address] [place] [address] 67368 Lymphocytes/Leukocy gary Auto (Bld) [Pure # fraction] 1.5 E9/L Normal 1.0-4.0 [facility] Comment on above: Order Comment: Order Added by Discern Expert. Performed By: #### 2 [id number], [id number], [id number] #### [facility] [address] [place] [address] 70908 Monocytes/100 WBC (Bld) 8.1 % Normal 4.0-14.0 [facility] Comment on above: Order Comment: Order Added by Discern Expert. Performed By: #### 2 386426, [id number], [id number] #### [facility] [address] [place] [address] 14026 Monocytes/Leukocyte s Auto (Bld) [Pure # fraction] 0.5 E9/L Normal 0.2-1.0 [facility] Comment on above: Order Comment: Order Added by Discern Expert. Performed By: #### 2 086434, [id number], [id number] #### [facility] [address] [place] [address] 98157 Neutrophils/100 WBC (Bld) 66.6 % Normal 36.0-75.0 [facility] Comment on above: Order Comment: Order Added by Discern Expert. Performed By: #### 2 579174, 8836400, [id number] #### [facility] [address] [place] [address] 42511 Neutrophils/Leukocy gary Auto (Bld) [Pure # fraction] 4.4 E9/L Normal 2.0-7.5 [facility] Comment on above: Order Comment: Order Added by Discern Expert. Performed By: #### 2 899093, [id number], [id number] #### [facility] [address] [place] [address] 25830 CBC w/ Auto Diffon 2 Erythrocyte distribution width (RBC) [Ratio] 13.4 % Normal 10.9-14.2 [facility] Comment on above: Performed By: #### 2 634201, [id number], [id number] #### [facility] [address] [place] [address] 23813 Hematocrit (Bld) [Volume fraction] 37.2 % Normal 34.0-46.0 [facility] Comment on above: Performed By: #### 2 767696, 6114215, [id number] #### [facility] [address] [place] [address] Hemoglobin (Bld) [Mass/Vol] 12.7 g/dL Normal 12.0-16.0 [facility] Comment on above: Performed By: #### 2 811224, 9370618, [id number] #### [facility] [address] [place] [address] MCH (RBC) [Entitic mass] 29.8 pg Normal 27.0-34.0 [facility] Comment on above: Performed By: #### 2 957186, 1885495, [id number] #### [facility] [address] [place] [address] 23705 MCHC (RBC) [Mass/Vol] 34.1 g/dL Normal 31.4-36.0 [facility] Comment on above: Performed By: #### 2 734973, 2499549, [id number] #### [facility] [address] [place] [address] 65520 MCV (RBC) [Entitic vol] 87.4 fL Normal 80.0-100.0 [facility] Comment on above: Performed By: #### 2 246213, 2828226, [id number] #### [facility] [address] [place] [address] 16056 Platelet mean volume (Bld) [Entitic vol] 8.4 fL Normal 6.4-10.8 [facility] Comment on above: Performed By: #### 2 080487, 1527718, [id number] #### [facility] [address] [place] [address] Platelets (Bld) [#/Vol] 199.0 E9/L Normal 150.0-500.0 [facility] Comment on above: Performed By: #### 2 273489, 5937798, [id number] #### [facility] [address] [place] [address] RBC (Bld) [#/Vol] 4.3 E12/L Normal 4.3-5.9 [facility] Comment on above: Performed By: #### 2 925829, 0827873, [id number] #### [facility] [address] [place] [address] WBC corrected for nucl RBC Auto (Bld) [#/Vol] 6.6 E9/L Normal 4.0-11.0 [facility] Comment on above: Performed By: #### 2 283692, 4708211, [id number] #### [facility] [address] [place] [address] Consent for Treatmenton 07-29 Consent for Treatment [id number]#1.00C D:127 Normal [facility] PT & PTTon 08-21-2022 aPTT Coag (PPP) [Time] 33.2 second(s) Normal 25.1-36.5 [facility] Comment on above: Result Comment: Para meter 15 days - 4 weeks 1 - 5 months 6 - 11 months 1 - 5 years 6 - 10 years 11 - 17 years PTT Mean: 35.4 (27.6-45.6) Mean: 33.5 (24.8-40.7) Mean: 32.4 (25.1-40.7) Mean: 31.6 (24.0-39.2) Mean: 31.6 (26.9-38.7) Mean: 31.0 (24.6-38.4) Pediatric Reference ranges were obtained from a study by Gonzalo Asencio et al. prepared from 1437 samples obtained at 7 different centers using the same coagulation reagent and instrumentation as [facility]. Currently there are no coagulation studies available worldwide for children to 14 days, and no normal ranges. Heparin therapeutic range (represented by Anti-Factor Xa activity of 0.2 - 0.4 U/mL) corresponds to PTT of 56.6 - 109.0 sec. Performed By: #### 2 040426, [id number], [id number] ####[facility] [address] [place] [address] INR Coag (PPP) [Relative time] 1.0 {INR} Invalid Interpretation Code [facility] Comment on above: Result Comment: INR results are specifically intended to assess patients stabilized on long-term Anticoagulation therapy suggested INR?s ?Less Intensive Anticoagulation? 2.0 ? 3.0 Conventional Range 3.0 ? 4.5 Performed By: #### 2 206468, 4734897, [id number] ####[facility] [address] [place] [address] PT Coag (PPP) [Time] 10.8 second(s) Normal 9.4-12.5 [facility] Comment on above: Result Comment: 15 d ays - 4 weeks 1 - 5 months 6 -11 months 1 ? 5 years 6 ? 10 years 11 -17 years Mean: 11.2 (9.5 ? 12.6) Mean: 11.0 (9.7 ? 12.8) Mean: 11.0 (9.8 ? 13.0) Mean: 11.3 (9.9 ? 13.4) Mean: 11.7 (10.0 ? 14.6) Mean: 11.8 (10.0 - 14.1) Pediatric Reference ranges were obtained from a study by Gonzalo Asencio et al. prepared from 1437 samples obtained at 7 different centers using the same coagulation reagent and instrumentation as [facility]. Currently there are no coagulation studies available worldwide for children to 14 days, and no normal ranges. Performed By: #### 2 316183, 3832742, [id number] ####[facility] [address] [place] [address] Consultation Noteon 08-12-20 Consultation Note [id number]#1.00C D:127 Normal [facility] Consent for Procedure/Surger yon 08-10-2022 Consent for Procedure/Surgery [id number] CD:127 Normal [facility] Immunization Recordson 08-10 Immunization Records [id number]#1.00 CD:127 Normal [facility] Outside Recordson 08-10-2022 Outside Records [id number] CD:127 Normal [facility] Physician Orderon 08-07-2022 Physician Order [id number]#1.00C D:127 Normal [facility] MRI (SINGLE)on 018 MRI (SINGLE) Clinical history: Ca vum Vergae enlargement. Possible Chiari malformation.Estimated gestational age on July 27 is 28 weeks and 5 days.COMPARISON: Ultrasound report of July 04, 2018TECHNIQUE: Multiplanar, multisequence images of the fetus are obtained withoutgadolinium enhancement.Results:Mat ernal: The limited views of the maternal kidneys demonstrate nohydronephrosis. The maternal gallbladder demonstrates no foci of low T2 signalto suggest gallstones. No lumbar spine disc herniation is identified.Uterus: The fetus is in breech presentation. The placenta is superoposterior and does not encroach upon the internal cervical os. The cervical canal measures 4. cm. No membranes bulge through the internal cervical os.Fetus: brain: The ventricles are normal in size. There is slight enlargement ofthe left lateral ventricle with respect to the right. There is a cavum septumpellucidum measuring 5.6 mm in maximal dimension. There is a cavum vergaemeasuring up to 8.1 mm. There are several small cysts adjacent to the anteriorhorn/anterior body of the left lateral ventricle with the largest measuring upto 3.3 mm on coronal images. The corpus callosum is present.The cerebellar vermis is normal in appearance measuring 1.7 cm in height. Thegreatest transverse cerebellar dimension is 3.4 cm The cerebellar vermis is notnot uplifted or rotated. There is no evidence of Chiari malformation. face: No cleft lip or cleft palate is identified. The orbits areunremarkable. chest: The lung parenchyma is normal in signal with no cyst or massidentified. The cardiac apex is left-sided. No enlarged proximal esophagus isseen. abdomen: The liver is right-sided. The stomach is left-sided. Thegallbladder is present. The bladder is distended. The kidneys demonstratepelviectasis measuring less than 5 mm and scattered central caliectasis. Nodilated loops of bowel are present. No findings concerning for gastroschisis oromphalocele. The spleen is present and not enlarged. No adrenal gland masses are seen.IMPRESSION:1. No findings of Chiari malformation.2. Small cluster of cysts adjacent to the left lateral ventricle anterior hornand anterior body which are nonspecific but may represent Connatal cysts.Follow-up head ultrasound after the patient is born with be recommended.This report has been created using voice recognition softwareSigned by: Dr. Shar Collado at 07/28/2018 14:37 Normal [facility] Progress Noteon 07-27-2018 Glue Spreading Machine Operator Authentication Interface Message Text Met with patient and her Marcy for concern for CORE FILER and cardiac abnormalities Medical, surgical and family hx reviewedPsycho/Social risk:Support System: husbandFinancial Stressors: deniesFamily Dynamics: lives with and 2 childrenBehavioral Health Issues: deniesWork History: homemaker Information on [facility] services given.Consent to share information with FTC team, OB and welfare worker signed. Pt plans [facility] Prajapati.Assembler Final is [employer]. Does not know genderMethod of feeding: breastUltrasound findings today: See report in procedures for details. echocardiogram pending from today- pt reports normal and no follow upFetal MRI pendingReinforced continued OB care with Dr. PrajapatiThe total patient time of the visit was 5 minutes, of which greater than 50% ofthe time was spent counseling and coordinating care. Normal [facility] Glue Spreading Machine Operator Authentication Interface Message Text The total patient time of the visit was 45 minutes, of which greater than 50% of the time was spent counseling and coordinating care. Normal [facility] Glue Spreading Machine Operator Authentication Interface Message Text New [id number]/28/2018RE: Tiffany AshlieB: 1985AGE: 33 y.[address]#: [id number]: [id number] Age: 28 WeeksDelivery [facility]:Chief ComplaintPatient presents with ECHO echo, echogenic focus in the left ventricle, spinal cord abnormality.Other indications: Cardiac Abnormality Suspected on Obstetrical UltrasoundOB History Para Term AB Living 4 2 2 1 2 SAB TAB Ectopic Multiple Live Births 1 2Counseling and/or coordination of care (face to face time in theoffice/outpatient setting or floor/unit time in the hospital) was greater than40 minutes which is more than 50% of the total time of 60 minutes spent on theencounter. In addition, the following items were performed before, during andafter this visit: Synthesis of current imaging findings.Results for orders placed or performed in visit on 07/27/18Echo New Narrative [facility] [place] [address] [email or web address] Fet al Echocardiogram ReportM-mode, complete 2D, complete spectral Doppler, and color DopplerPATIENT: Tiffany Winters STUDY DATE/TIME: Jul 27 2018 9:25AMMRN: [id number] HEIGHT:: 1985 WEIGHT:AGE: 33yr BSA/BMI: /GENDER: F BP: 122 / 65LOC[facility]REF[facility]ICIAN: Nyla Duong Kristin JORDERING PROVIDER: Jaron Duong PHYSICIAN: ESTEBAN Campos --SUMMARY:1. Structurally normal heart.2. Small echogenic foci seen in the left ventricle.3. This study is limited in evaluating minor valve abnormalities, septal defects, partial anomalous pulmonary venous connection, and aortic arch abnormalities.4. The above findings, including the limitations, were discussed with the patient.Recommendations : follow-up if welfare worker hears a heartmurmur or otherwise clinically indicated. --------REASON FOR EXAM:Echogenic foci, possible spinal cord abnormality. STUDY AND PROCEDURE DATA: Procedure Description: New([id number]) . Study status: Elective. Location: lab.Procedure: Transabdominal echocardiography for congenitalheart disease evaluation. Patient status: Outpatient. Bloodpressure: 122/65 Maternal age: 33yr. : 4.Parity: 2. Expected delivery date: 10/14/2018. Gestationalage: 28wk. Trimester: 3rd trimester. --------FINDINGS: DESCRIPTION One fetus is present. Normal three vesselview.The rhythm is sinus rhythm, with a heart rate of 139bpm. Thefetal position is breech. Normal Doppler pattern of the ductusvenosus, umbilical artery, and vein. Three vessel cord.ANATOMIC RELATIONSHIPS- Normal visceral situs, with left sided stomach. Left sided cardiac apex (levocardia).Normally related great vessels.VEINS AND ATRIAAtrial septum- There is a patent foramen ovale. There is a cjtwz-aj-nago shunt.Left atrium- The atrium is normal in size.Right atrium- The atrium is normal in size.Systemic veins- Inferior vena cava and superior vena cava seen entering normally into the right atrium.Pulmonary veins- There are at least 2 out of 4 pulmonary veins seen entering normally into the left atrium, with normal Doppler pattern.A-V CANALTricuspid valve- The valve is structurally normal.- There is normal biphasic inflow spectral Doppler. There is no regurgitation.Mitral valve- The valve is structurally normal.- There is normal biphasic inflow spectral Doppler. There is no regurgitation.VENTRICLE SRight ventricle- The cavity size is normal. Wall thickness is normal. Systolic function is qualitatively normal.Left ventricle- The cavity size is normal. Wall thickness is normal. Small echogenic foci seen within the left ventricle. Systolic function is quantitatively normal. The endocardial fractional shortening is 38% by M-mode.CONOTRUNCUSAorti c valve- The valve is structurally normal.- There is no stenosis. There is no regurgitation.Pulmonic valve- The valve is structurally normal.- There is no stenosis. There is no regurgitation.GREAT ARTERIESAorta- Left aortic arch and normal branching pattern is demonstrated. Normal ductal arch seen. Normally related great arteries.Pulmonary arteries- The proximal branch pulmonary arteries are normal.Main pulmonary artery: The artery is of normal size.Systemic-pulmonary shunts- Patent ductus arteriosus. Normal pulsed wave Doppler pattern.PERICARDIUM- There is no significant pericardial effusion. -------MEASUREMENTS: Value Reference Z Biparietal diameter 6.83 cm 6.36 - 7.61 -0.5 Head circumference 25.89 cm ---- Abdominal circumference 24.22 cm ---- Femur length 5.25 cm ---- Humerus length 4.72 cm ---- Transcerebellar diameter 3.35 cm ---- Weight (estimated) 1191 g ---- Cardiac area 97.70 mm2 ---- Thoracic area 300.4 mm2 ---- Cardiac/thoracic area 0.33 ---- Femur/biparietal diameter 0.77 ---- Left ventricle Value Reference Z LV ID, ED, MM 1.25 cm ---- LV ID, ES, MM 0.77 cm ---- LV fx shortening, MM 38 % 28 - 43 0.9 LV mid-wall fx shortening, MM 18 % ---- LV PW thickness, ED, MM 0.26 cm ---- LV PW thickness, ES, MM 0.31 cm ---- LV PW thickening, MM 19 % ---- IVS/LV PW ratio, ED, MM 0.88 0.73 - 1.41 -1.1 LV relative wall thickness, 0.42 ---- ED, MM LV end-diastolic volume, 4 ml ---- Teichholz MM LV end-systolic volume, 1 ml ---- Teichholz MM LV ejection fraction, 73 % ---- Teichholz MM LV wall mass, MM 3 g ---- Right ventricle Value Reference Z RV ID, ED, MM 1.2 cm ---- Ventricular septum Value Reference Z IVS thickness, ED, MM 0.23 cm ---- IVS thickness, ES, MM 0.48 cm ---- IVS thickening, MM 109 % ---- Aortic valve Value Reference Z Aortic valve peak velocity, S 0.9 m/sec ---- Aortic valve mean velocity, S 0.54 m/sec ---- Aortic valve VTI, S 11.3 cm ---- Aortic mean gradient, S 2 mm Hg ---- Aortic peak gradient, S 4 mm Hg ---- Mitral valve Value Reference Z Mitral E-wave peak velocity 0.41 m/sec ---- Mitral A-wave peak velocity 0.54 m/sec ---- Mitral mean velocity, D 0.24 m/sec ---- Mitral mean gradient, D 0 mm Hg ---- Mitral E/A ratio, peak 0.76 ---- Mitral A-wave VTI 6.4 cm ---- Tricuspid valve Value Reference Z Tricuspid E-wave peak velocity 0.44 m/sec ---- Tricuspid A-wave peak velocity 0.6 m/sec ---- Tricuspid E/A ratio, peak 0.73 ---- Tricuspid mean velocity, D 0.34 m/sec ---- Tricuspid mean gradient, D 1 mm Hg ---- Tricuspid VTI at annulus, D 6.8 cm ---- Pulmonic valve Value Reference Z Pulmonic valve peak velocity, 0.66 m/sec ---- S Pulmonic valve mean velocity, 0.43 m/sec ---- S Pulmonic mean gradient, S 1 mm Hg ---- Pulmonic peak gradient, S 2 mm Hg ----Legend:(L) and (H) shayna values outside specified reference range. ----BILLINGSICD Codes:(O35.8XX0) Maternal care for other (suspected) abnormalityand damage not applicable or unspecified. Interpreted andelectronically signed byESTEBAN Campos07/27/2018 16:58 Normal [facility] Progress Noteon 07-04-2018 Glue Spreading Machine Operator Authentication Interface Message Text Reason for ReferralTiffany and her , Yunior, were seen by myself and Niya Danielle [facility], on07/04/2018 at [facility]. CORINNE Crockett requested genetic counseling to discuss the previous ultrasoundfinding of intracardiac echogenic focus.HistoryAt the time of the visit Tiffany was 33 years of age, and [id number] weeks 3 days by last menstrual period and confirmed by 1st trimesterultrasound, with an JAYLEEN of 10/14/18.Prior to her visit Tiffany had an ultrasound performed at 19 weeks gestation andagain at 23 weeks gestation that was significant for an intracardiac echogenicfocus.Miscarri age in 2013 (first trimester)Blood type - O+Previously declined all genetic testing with OB.Family Medical History (scanned under media tab)Healthy sonDaughter with tear duct surgery but otherwise healthyRemary's side:Paternal aunt with either colon or ovarian cancerPaternal uncle with LymphomaScari's daughter with cerebral palsy (left side) reportedly due to brain bleed.No learning issues; in gifted class for readingMaternal uncle dx with cerebral palsy - in wheelchair, nonverbal; deceasedJoe's side:Yunior - scoliosis found incidentally - did not need bracing or surgery6 brothers and sisters; 1 brother of stomach cancer at age 33One sister whose daughter was born with a congenital heart defect; not sure ifneeded surgery; no contact with familyNiece with scoliosis requiring surgeryFather with kidney cancer age age 77 years.The remainder of the and family medical history was also obtainedwhich was non-contributory.Ultras ound Findings:Today's ultrasound was consistent with prior ultrasound dating. ICEF wasconfirmed. Anatomic survey was limited due to position. Additionalfindings noted were an increased space with some splaying around cervical spine(C2-C3), a cavum vergae, and in some views the SVC appeared tortuous.Genetic Counseling SummaryIntracardiac echogenic focus:Intracardiac echogenic focus (ICEF) is a common ultrasound finding and usuallyrepresents normal variation. However, it is associated with an increased risk ofDown syndrome and to a lesser extent, other chromosome problems. When ICEFoccurs as an isolated finding, the increased risk is typically considered to beless than 1%. More specifically, Tiffany's a priori risk mid-trimester risk forDown syndrome based on maternal age is 1/630. Her posterior probability based onmaternal age and ICEF is 1/226. An ICEF is not a structural or functional heartdefect and does not require any medical follow-up after . We discussed indetail options of maternal serum cell-free DNA screening for chromosomeabnormalities , ultrasound screening for ICEF and additional abnormalities, anddiagnostic testing through amniocentesis.Additiona l ultrasound findings:We briefly discussed the additional ultrasound findings. The fetalechocardiogram and MRI will hopefully bring additional clarification.Expanded Carrier Screening:Although not related to the intracardiac echogenic focus, we also discussed theoption of expanded carrier screening for X-linked and autosomal recessiveconditions such as cystic fibrosis, fragile X, spinal muscular atrophy,louann-sachs disease and many others as part of a large carrier screen panel.Although the most optimal time to do carrier testing is prior to conception, asit may have implications on planning, it is also an option duringpregnancy, since certain conditions could influence management.Family History of Cancer:We discussed that cancer can occur sporadically or from genetic changes that areinherited and predispose to cancer. We look at the family history for types ofcancer, frequency of cancer, ages of onset and who in the family is affected, todetermine if there might be an inherited predisposition. We also brieflydiscussed why it is important, when possible, to start with an individual thathas a personal history of cancer for the testing to be the most informative. Ifthat is not possible, panels are available which can search for geneticdifferences that are most likely associated with the cancers present in aparticular family. We discussed that a genetic cancer consult can assist indetermining if a family history is suggestive of a hereditary predispositionand, if so, genetic testing options.Follow up testing options discussed included: Comprehensive Ultrasound Maternal serum cell-free DNA screening echocardiogram Amniocentesis MRI Expanded carrier screeningFollowing our discussion Tiffnay elected to have: Comprehensive ultrasound - performed today echocardiogram MRIFollow-up MRI scheduled on 07/27/18 at 7:30 am echocardiogram scheduled in [facility] on 07/27/18 at 9:45 am Tiffany also met with Amber Agee, Clinical Licensed Marine Engineer from [facility]. Amber will continue to help coordinate and and, ifnecessary, care. A follow-up meeting with the [facility] is scheduled on07/27/18 at 12:45 pm. Additional recommendations pending follow-up visit with additional informationfrom MRI and echocardiogram. Follow-up as clinically indicated.The total patient time of the visit was 30 minutes, of which greater than 50% ofthe time was spent counseling and coordinating care. Normal [facility] Encounters Encounter Date Encounter Type Care Provider Facility Start: 07-02-2023 End: 07-03-2023 ambulatory Za [facility] Facility: [facility] Start: 01-04-2023 ambulatory VICKI LEACH Facility :[facility] Start: 01-04-2023 End: 01-04-2023 Emergency department patient visit Josue Carrasquillo Facility:[facility] Start: 01-04-2023 ambulatory Za [facility]oley Facili ty: [facility] Start: 09-07-2022 End: 09-07-[address] JUAN CARLOS DIGGS Facility: Start: 08-27-2022 End: 08-27-2022 ambulatory Becyk Rush Facility:[facility] Start: 08-21-2022 End: 08-22-2022 ambulatory Becky Rush Facility:[facility] Start: 09-28-2018 End: 09-28-2018 Patient encounter procedure LILA GILBERT [facility] Start: 08-31-2018 End: 08-31-2018 Patient encounter procedure NYLA T [facility] Start: 07-27-2018 Patient encounter procedure EZEQUIEL GREY [facility] Start: 07-27-2018 End: 07-27-2018 Patient encounter procedure KEVIN GRIFFIN [facility] Start: 07-27-2018 End: 07-28-2018 Patient encounter procedure NYLA Encarnacion [facility] Start: 07-04-2018 End: 07-04-2018 Patient encounter procedure DEISI J BARBARA [facility] Payers Date Payer Category Payer Unknown [id number] 2.16.8 [id number] 1987 Unknown [id number] 2.16.8 [id number] 1987 Unknown [id number] 2.16.8 40.1.429757.3.579.2.479 1987 Unknown [id number] 2.16.8 40.1.648687.3.579.2.479 1987 Unknown [id number] 2.16.8 40.1.252629.3.579.2.479 1987 Unknown [id number] 2.16.8 40.1.817978.3.579.2.479 1987 Unknown [id number] 2.16.84 0.1.786889.3.579.2.593 1987 Unknown [id number] 2.16.8 40.1.196193.3.579.2.727 1987 Unknown [id number] 2.16.8 40.1.845730.3.579.2.727 1987 Unknown [id number] 2.16.8 40.1.152646.3.579.2.727 1987 Unknown [id number] 2.16.8 40.1.887162.3.579.2.727 1987 Unknown [id number] 2.16.8 40.1.956042.3.579.2.727 1987 Unknown [id number] 2.16.8 40.1.381413.3.579.2.727 1959 Unknown [id number] Unknown [id number] History and physical note 08-10-2022 Note Date & Type Note Facility 08-10-2022 Note [id number]#[id number] [facility] Summary Purpose Family History No Family History Records FoundNo Family History Records FoundNo Family History Records Found Advance Directives No Advanced Directives Records FoundNo Advanced Directives Records FoundNo Advanced Directives Records Found Additional Source Comments INFORMATION SOURCE (unrecogn ized section and content) DATE CREATED AUTHOR 09/28/2018 [facility] DATE CREATED AUTHOR AUTHOR'S ORGANIZ ATION 09/18/2022 [facility] DATE CREATED AUTHOR AUTHOR'S ORGANIZ ATION 07/04/2023 [facility] FOR RECORDS PERTAINING TO PATIENTS WHO ARE OR HAVE BEEN ENROLLED IN A CHEMICAL DEPENDENCY/SUBSTANCEABUSE PROGRAM, SOME INFORMATION MAY BE OMITTED. This clinical summary was aggregated from multiple sources. Caution should be exercised in using it in the provision of clinical care. This summary normalizes information from multiple sources, and as a consequence, information in this document may materially change the coding, format and clinical context of patient data. In addition, data may be omitted in some cases. CLINICAL DECISIONS SHOULD BE BASED ON THE PRIMARY CLINICAL RECORDS. [facility] provides no warranty or guarantee of the accuracy or completeness of information in this document.
[2023-09-22 13:07] LABS: Age Gdln ACOG Testing Note (.); HPV Aptima Negative (Negative); IGP, Aptima HPV, rfx 16/18,45 Note (.)
== END 2023-09-15 21:44 | disposition home or self-care (01) ==
LOC: LAB 21:43
PROVIDERS: PCP Obstetrics & Gynecology; Visit Provider Obstetrics & Gynecology
DX: Z01.419 Encounter for gynecological examination (general) (routine) without abnormal findings (principal)
CPT/HCPCS: 87624; G0145

== ENCOUNTER 2024-10-03 19:31 | Outpatient (REF) | payer OTHER, SELFPAY ==
[2024-10-06 10:14] LABS: Age Gdln ACOG Testing Note (.); HPV Aptima Negative (Negative); IGP, Aptima HPV, rfx 16/18,45 Note (.)
== END 2024-10-03 19:32 | disposition home or self-care (01) ==
LOC: LAB 19:31
PROVIDERS: PCP Obstetrics & Gynecology; Visit Provider Obstetrics & Gynecology
DX: Z01.419 Encounter for gynecological examination (general) (routine) without abnormal findings (principal)
CPT/HCPCS: 87624; 88175